=== PATIENT | female | born 1930 | race Caucasian/White ===

== ENCOUNTER 2017-10-07 09:32 | Emergency (ER) | payer MEDICARE, OTHER ==
[~2017-10-07] VITALS: Ht 160 cm; Wt 45.4 kg
[~2017-10-07 09:32] MED LIST: AC325T PO; ACHD5005 PO; ALPH1TAB8 PO; ASCO500T20 PO; ASPI-84 PO; Amlodipine Besylate PO; Aspirin PO; CALC-694 PO; CALC-783 PO; CALC-9; CALCIUM PO; CHOL10003 PO; CLNZ.5T PO; CLON0.5T3; CLON0.5T3 PO; CLON0.5T60 PO; DOCU100T7; DOXY100C2 PO; ENAL10TA PO; ENAL5TAB PO; ENLP10T PO; ENXP40I.4 SC; FELODIPINE; FNT.05A2 IV; GFN600TCR PO; GLUC-132 PO; GLUC-144 PO; HYDR-757 PO; IBP800T PO; LEG CRAMPS PO; LVT.05T PO; MAGN250T7 PO; METO50TA7 PO; MTP25TSR PO; MULT-608; MULT1CAP27 PO; NITR-65 PO; OMEG-12 PO; Ondansetron Hcl PO; PHEN200T27 PO; PROP15DR OU; Polyethylene Glycol PO; RLX60T; RLX60T PO; SIMV20TA3 PO; SMV20T; SMV20T PO; SOTA120T PO; Sotalol Hcl PO; TRIH5TAB7 PO; TRIHEXYPHENIDYL HCL PO; VITA100T6 PO; VITA200C18; ZOLE4INF IV
--- OUTSIDE RECORDS SUMMARY | 2017-10-07 09:42 | XMS REPORT | Continuity of Care Document ---
Author Author [employer] Organization [facility] Address Unknown Phone Unavailable Care Team Providers Care Teaching Fellow Name Role Phone [employer] Unavailable Unavailable Problems Medications Allergies, Adverse Reactions, Alerts Immunizations Results Vital Signs Encounters Location Location Details Encounter Type Encounter Number Reason For Visit Attending Provider ADM Date DC Date Status Source [facility] [place] Active [facility] Procedures Plan of Care Social History Assessment and Plan Family History Value Date Source Advance Directives Order Name Results Value Date Source
--- OUTSIDE RECORDS SUMMARY | 2017-10-07 09:42 | XMS REPORT | Clinical Summary ---
Author Author [facility] Organization [facility] Address Unknown Phone Unavailable Care Team Providers Care Enologist Name Role Phone PCP Unavailable Source Comments Some departments are not documenting in the electronic medical record. If you do not see the information that you expected, contact Release of Information in the Health Information Management department at [phone] for further assistance in locating additional records.[facility] Allergies No Known Allergies Current Medications Prescription Sig. Disp. Refills Start End Date Status Date sotalol (BETAPACE) 120 mg Take 120 mg by mouth Active Tab twice daily. simvastatin (ZOCOR) 20 mg Take 20 mg by mouth at Active tablet bedtime daily. enalapril (VASOTEC) 10 mg Take 10 mg by mouth Active tablet daily. clonazePAM (KLONOPIN) 0.5 Take 1 Tab by mouth 90 Tab 1 07/30/20 Active mg tabletIndications: daily. 15 Organic writers' cramp trihexyphenidyl (ARTANE) Take 1 tablet by mouth 90 tablet 0 09/24/20 Active 5 mg tabletIndications: daily. 17 Organic writers' cramp trihexyphenidyl (ARTANE) Take 1 Tab by mouth 90 Tab 3 07/30/2009/24 Discontin 5 mg tabletIndications: daily. 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 Currently I follow three generations of her family. This has been present for thirty or more years. Her symptoms are well controlled with the combination of trihexyphenidyl and clonazepam. L ast Assessment & Plan: Formatting of this note may be different from the original. I have given her refill prescriptions, she will call in six months for a refill of the clonazepam and return to see me again in a year. Encounter Medications Medications enalapril (VASOTEC) 10 mg tablet Sig: Take 10 mg by mouth daily. clonazePAM (KLONOPIN) 0.5 mg tablet Sig: Take 1 Tab by mouth daily. Dispense: 90 Tab Refill: 1 trihexyphenidyl (ARTANE) 5 mg tablet Sig: Take 1 Tab by mouth daily. Dispense: 90 Tab Refill: 3 Patient Instructions In about five and a half months call us for a new prescription for clonazepam, You can always reach me through the page planishing press operator and ask them to page me Organic writers' cramp 12/29/2012 Overview: Please see under blepharospasm Encounters Date Type Specialty Care Team Description 09/24/2017 Refill Neurology Raul Santos MD Organic writers' cramp 09/23/2017 Telephone Neurology Raul Santos MD Medication Refill (Denied) from Last 3 Months Social History Tobacco Use Types Packs/Day Years Used Date Never Smoker Sex Assigned at Date Recorded Not on file Last Filed Vital Signs Vital Sign Reading Time Taken Blood Pressure 160/82 07/30/2015 10:21 AM CDT Pulse 60 07/30/2015 10:21 AM CDT Temperature - - Respiratory Rate - - Oxygen Saturation - - Inhaled Oxygen - - Concentration Weight 46.7 kg (103 lb) 07/30/2015 10:21 AM CDT Height 152.4 cm (5') 07/30/2015 10:21 AM CDT Body Mass Index 20.12 07/30/2015 10:21 AM CDT Plan of Treatment Health Maintenance Due Date Last Done Comments PHYSICAL (COMPREHENSIVE) 1937 EXAM PERTUSSIS VACCINE 1942 TETANUS VACCINE 1948 SHINGLES VACCINE 1991 OSTEOPOROSIS SCREENING 1996 PREVNAR/PNEUMOVAX (#1) 1996 INFLUENZA VACCINE 06/22/2017 Results Not on filefrom Last 3 Months
--- OUTSIDE RECORDS SUMMARY | 2017-10-07 09:42 | XMS REPORT | Encounter Summary ---
Author Author [facility] Organization [facility] Address Unknown Phone Unavailable Care Team Providers Care Campus Coordinator Name Role Phone PCP Unavailable Reason for Visit * Reason Comments Medication Refill Denied Encounter Details Date Type Department Care Team Description 09/23/2017 Telephone [facility] Raul Santos MD Medication Refill Physicians-Neurology [address] [facility] (Denied) [facility] [address] [place] [address] [place], [place] [phone] Social History Tobacco Use Types Packs/Day Years Used Date Never Smoker Sex Assigned at Date Recorded Not on file as of this encounter Miscellaneous Notes * Telephone Encounter - Karla Mcmullen LPN - 09/23/2017 11:30 AM CDT Requesting a refill . Last visit was 07-30-2015 Refill denied . Faxed to pharm. in this encounter Plan of Treatment Not on fileas of this encounter Visit Diagnoses Not on filein this encounter
--- OUTSIDE RECORDS SUMMARY | 2017-10-07 09:42 | XMS REPORT | Encounter Summary ---
Author Author [facility] Organization [facility] Address Unknown Phone Unavailable Care Team Providers Care Supervisor Abattoir Name Role Phone PCP Unavailable Reason for Visit * Reason Comments Medication Refill Encounter Details Date Type Department Care Team Description 09/24/2017 Refill [facility] Raul Santos MD Organic writers' cramp Physicians-Neurology [address] [facility] [address] [place] [address] [place], [place] [phone] Social History Tobacco Use Types Packs/Day Years Used Date Never Smoker Sex Assigned at Date Recorded Not on file as of this encounter Plan of Treatment Not on fileas of this encounter Visit Diagnoses Diagnosis Organic writers' cramp in this encounter
--- OUTSIDE RECORDS SUMMARY | 2017-10-07 09:45 | XMS REPORT | Continuity of Care Document ---
Author Author [facility] Organization [facility] Address Unknown Phone Unavailable Allergies Active Description Code Type Severity Reaction Onset Reported/Identified Relationship to Patient Clinical Status Yes codeine [id number] Drug Allergy Mild N/A 08/08/2008 Yes No Known Drug Allergies [id number] Drug Allergy Unknown N/ A 04/05/2015 Medications Problems Date Dx Coded Attending Type Code Diagnosis Diagnosed By 04/02/2015 MIGUELANGEL RAHMAN Ot 599.0 04/02/2015 MIGUELANGEL RAHMAN Ot 733.13 04/02/2015 MIGUELANGEL RAHMAN Ot 789.06 04/02/2015 MIGUELANGEL RAHMAN Ot V58.69 04/05/2015 Ot 733.00 04/05/2015 Ot V58.69 04/05/2015 Ot 733.00 04/05/2015 Ot V58.69 04/07/2015 MARTHA MONCADA, RONEL Anderson Ot 041.49 04/07/2015 MARTHA MONCADA, RONEL Anderson Ot 244.9 04/07/2015 MARTHA MONCADA, RONEL Anderson Ot 272.4 04/07/2015 MARTHA MONCADA, RONEL Anderson Ot 401.9 04/07/2015 MARTHA MONCADA, RONEL Anderson Ot 427.31 04/07/2015 MARTHA MONCADA, RONEL Anderson Ot 433.10 04/07/2015 MARTHA MONCADA, RONEL Anderson Ot 496 04/07/2015 RONEL THOMAS MD Ot 530.81 04/07/2015 MARTHA MONCADA, RONEL Anderson Ot 562.10 04/07/2015 MARTHA MONCADA, RONEL Anderson Ot 599.0 04/07/2015 RONEL THOMAS MD Ot 724.8 04/07/2015 MARTHA MONCADA, RONEL Anderson Ot 733.00 04/07/2015 RONEL THOMAS MD Ot 781.0 04/07/2015 RONEL THOMAS MD Ot V15.82 04/12/2015 RAFITA MONCADA, RUSH Warner Ot 244.9 04/12/2015 RUSH ELLER MD Ot 272.4 04/12/2015 RAFITA MONCADA, RUSH E Ot 401.9 04/12/2015 RAFITA MONCADA, RUSH E Ot 427.31 04/12/2015 RAFITA MONCADA, RUSH E Ot 433.10 04/12/2015 RAFITA MONCADA, RUSH E Ot 496 04/12/2015 RAFITA MONCADA, RUSH E Ot 530.81 04/12/2015 RAFITA MONCADA, RUSH E Ot 562.10 04/12/2015 RAFITA MONCADA, RUSH E Ot 564.00 04/12/2015 RAFITA MONCADA, RUSH E Ot 599.0 04/12/2015 RAFITA MONCADA, RUSH E Ot 724.5 04/12/2015 RAFITA MONCADA, RUSH E Ot 729.82 04/12/2015 RAFITA MONCADA, RUSH E Ot 733.00 04/12/2015 RAFITA MONCADA, RUSH E Ot V13.51 04/12/2015 RAFITA MONCADA, RUSH E Ot V57.89 04/12/2015 RAFITA MONCADA, RUSH E Ot 244.9 04/12/2015 RAFITA MONCADA, RUSH E Ot 272.4 04/12/2015 RAFITA MONCADA, RUSH E Ot 401.9 04/12/2015 RAFITA MONCADA, RUSH E Ot 427.31 04/12/2015 RAFITA MONCADA, RUSH E Ot 433.10 04/12/2015 RAFITA MONCADA, RUSH E Ot 496 04/12/2015 RAFITA MONCADA, RUSH E Ot 530.81 04/12/2015 RAFITA MONCADA, RUSH E Ot 562.10 04/12/2015 RAFITA MONCADA, RUSH E Ot 564.00 04/12/2015 RAFITA MONCADA, RUSH E Ot 599.0 04/12/2015 RAFITA MONCADA, RUSH E Ot 724.5 04/12/2015 RAFITA MONCADA, RUSH E Ot 729.82 04/12/2015 RAFITA MONCADA, RUSH E Ot 733.00 04/12/2015 RAFITA MONCADA, RUSH E Ot V13.51 04/12/2015 RAFITA MONCADA, RUSH E Ot V57.89 04/16/2015 RAFITA MONCADA, RUSH E Ot 244.9 04/16/2015 RAFITA MONCADA, RUSH E Ot 272.4 04/16/2015 RAFITA MONCADA, RUSH E Ot 401.9 04/16/2015 RAFITA MONCADA, RUSH E Ot 427.31 04/16/2015 RUSH ELLER MD Ot 433.10 04/16/2015 RAFITA MONCADA, RUSH Warner Ot 496 04/16/2015 RUSH ELLER MD Ot 530.81 04/16/2015 RUSH ELLER MD Ot 562.10 04/16/2015 RUSH ELLER MD E Ot 564.00 04/16/2015 RUSH ELLER MD Ot 599.0 04/16/2015 RUSH ELLER MD Ot 724.5 04/16/2015 RUSH ELLER MD Ot 729.82 04/16/2015 RUSH ELLER MD Ot 733.00 04/16/2015 RUSH ELLER MD Ot V13.51 04/16/2015 RUSH ELLER MD Ot V57.89 01/17/2016 ESTEFANÍA EATON MD Ot E78.2 01/17/2016 ESTEFANÍA EATON MD Ot I10 01/17/2016 ESTEFANÍA EATON MD Ot I48.3 01/17/2016 ESTEFANÍA EATON MD Ot I65.23 01/17/2016 ESTEFANÍA EATON MD Ot R06.02 Procedures Results Encounters ACCT No. Visit Date/Time Discharge Status Pt. Type Provider Facility Loc./Unit Complaint [id number] 12/23/2015 14:12:00 2015 23:59:59 CLS Outpatient ESTEFANÍA EATON MD [facility] CARD [id number] 04/07/2015 15:00:00 2014 14:30:00 DIS Inpatient RUSH ELLER MD [facility] IRF [id number] 04/03/2015 20:19:00 2014 15:45:00 DIS Inpatient RONEL THOMAS MD [facility] SURGICAL [id number] 04/02/2015 10:05:00 2014 14:51:00 DIS Emergency MIGUELANGEL RAHMAN [facility] ER [id number] 06/23/2014 10:42:00 2013 12:00:00 DIS Emergency [id number] 07/26/2013 09:02:00 2012 23:59:59 CLS Outpatient [id number] 02/10/2012 00:00:00 Document Registration
[2017-10-07] MEDS ORDERED: ADENOSINE 6 MG/2 ML (ADENOCARD) VIAL IV ONE (09:53)
[2017-10-07] MEDS: ASPIRIN 81 MG CHEW (CHILDREN'S ASA) PO ONE (09:58)
[2017-10-07] MEDS: NS IV 500 ML 500 ML IV ONE (09:59)
[2017-10-07 10:06] LABS: BASOPHILS # (AUTO) 0.1 10^3/uL (0.0-0.1); BASOPHILS % (AUTO) 1 % (0-10); EOSINOPHILS # (AUTO) 0.2 10^3/uL (0.0-0.3); EOSINOPHILS % (AUTO) 3 % (0-10); LYMPHOCYTES # (AUTO) 1.9 X 10^3 (1.0-4.0); LYMPHOCYTES % (AUTO) 28 % (12-44); MEAN CORPUSCULAR HEMOGLOBIN 30 PG (25-34); MEAN CORPUSCULAR HGB CONC 34 G/DL (32-36); MEAN CORPUSCULAR VOLUME 90 FL (80-99); MEAN PLATELET VOLUME 11.2 FL (7.4-10.4); MONOCYTES # (AUTO) 0.6 X 10^3 (0.0-1.0); MONOCYTES % (AUTO) 9 % (0-12); NEUTROPHILS # (AUTO) 3.9 X 10^3 (1.8-7.8); NEUTROPHILS % (AUTO) 59 % (42-75); PLATELET COUNT 304 10^3/uL (130-400); RED BLOOD COUNT 4.62 10^6/uL (4.35-5.85); RED CELL DISTRIBUTION WIDTH 13.1 % (10.0-14.5); WHITE BLOOD COUNT 6.7 10^3/uL (4.3-11.0)
[2017-10-07 10:14] LABS: PROTHROMBIN TIME PATIENT 13.6 SEC (12.2-14.7)
--- NOTE | 2017-10-07 10:14 | ED Cardiac General ---
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 PT HAS HX OF SVT WITH ABLATION. PT DENIES CHEST PAIN. Source: patient Exam Limitations: no limitations History of Present Illness Time seen by provider: 09:35 Initial Comments Patient reportedly had palpitations and feeling weird today approximately 30 minutes prior to arrival. Patient noted to have elevated heart rate low blood pressure. Brought over here for further evaluation area patient denies chest pain but does report palpitations. Reports a little short of breath but no nausea or vomiting. No diaphoresis. Has history of a heart rate in atrial fibrillation or SVT with previous history of ablation. Follows up with Dr. Dahl. Timing/Duration: 1/2 hour Severity: moderate Location: central Activities at Onset: rest NTG SL INTEGRATION PROJECT MANAGER: No ASA po INTEGRATION PROJECT MANAGER: No Associated Systoms: No Chest Pain, No Cough, No Fever/Chills, No Nausea/ Vomiting, Shortness of Air, No Weakness Allergies and Home Medications Allergies Coded Allergies: No Known Drug Allergies (Unverified , 04/05/15) Home Medications Aspirin 81 Mg Tablet., 81 MG PO BID, (Reported) Calcium Carbonate/Vitamin D3 1 Each Tablet, 1 TAB PO BID, (Reported) Clonazepam 0.5 Mg Tablet, 0.5 MG PO DAILY, (Reported) Clonazepam 0.5 Mg Tab, 0.5 MG PO DAILY, #0 Prescribed by: BARTOLOME VÁSQUEZ on 04/07/15 1628 Enalapril Maleate 10 Mg Tablet, 10 MG PO BID, (Reported) Enalapril Maleate 10 Mg Tab, 20 MG PO BID for 30 Days Prescribed by: REBECA SANCHEZ on 04/16/15 1346 Glucosamine Hcl/Chondr Ortez A Na 1 Each Tablet, 1 TAB PO DAILY, (Reported) Hydrocodone Bit/Acetaminophen 1 Tab Tab, 1 TAB PO Q4H PRN for PAIN, #0 Prescribed by: BARTOLOME VÁSQUEZ on 04/07/15 1628 Levothyroxine Sodium 50 Mcg Tab, 50 MCG PO DAILY@0630, #0 Prescribed by: BARTOLOME VÁSQUEZ on 04/07/15 1628 Magnesium Oxide 250 Mg Tablet, 250 MG PO HS, (Reported) Lincoln-3/Dha/Epa/Fish Oil 1 Each Capsule.dr, 1,000 MG PO BID, (Reported) Propylene Glycol/Peg 400 5 Ml Drops, 1-2 DROP OU QID PRN for DRY EYES, (Reported ) Simvastatin 20 Mg Tablet, 20 MG PO HS, (Reported) Sotalol Hcl 120 Mg Tablet, 120 MG PO BID, (Reported) Trihexyphenidyl Hcl 5 Mg Tablet, 5 MG PO DAILY, (Reported) [Amlodipine Besylate] 10 MG TABLET, 10 MG PO DAILY Prescribed by: REBECA SANCHEZ on 04/16/15 1346 [Ondansetron Hcl] 4 MG TAB, 4 MG PO Q4H PRN for NAUSEA/VOMITING Prescribed by: REBECA SANCHEZ on 04/16/15 1346 [Polyethylene Glycol] 17 GM PACK, 17 GM PO HS Prescribed by: BARTOLOME VÁSQUEZ on 04/07/15 162 [Sotalol Hcl] 80 MG TAB, 120 MG PO BID Prescribed by: BARTOLOME VÁSQUEZ on 04/07/151627 [Trihexyphenidyl Hcl] 5 MG TABLET, 5 MG PO DAILY Prescribed by: BARTOLOME VÁSQUEZ on 04/07/151627 Review of Systems Constitutional: see HPI, No fever EENTM: No Symptoms Reported Respiratory: See HPI Cardiovascular: See HPI, Lightheadedness Gastrointestinal: No Symptoms Reported Genitourinary: No Symptoms Reported Musculoskeletal: no symptoms reported Skin: no symptoms reported Psychiatric/Neurological: No Symptoms Reported All Other Systems Reviewed Negative Unless Noted: Yes Past Ifmkuqu-Rmqxgq-Irmtmv Hx Patient Social History Alcohol Use: Denies Use Recreational Drug Use: No Smoking Status: Former Smoker 2nd Hand Smoke Exposure: No Recent Foreign Travel: No Contact w/Someone Who Travel: No Recent Infectious Disease Expo: No Recent Hopitalizations: No Physical Abuse: No Sexual Abuse: No Immunizations Up To Date Tetanus Booster (TDap): Unknown Date of Pneumonia Vaccine: April 04, 2011 Date of Influenza Vaccine: Sep 22, 2017 Seasonal Allergies Seasonal Allergies: No Surgeries History of Surgeries: Yes (dental, HIATAL HERNIA, ) Surgeries: Abdominal, Bladder Surgery, Gallbladder Respiratory History of Respiratory Disorde: Yes Respiratory Disorders: COPD Cardiovascular History of Cardiac Disorders: No (SVT) Cardiac Disorders: Hypertension Neurological History of Neurological Disord: Yes (DYSTONIA) Reproductive System Hx Reproductive Disorders: No Sexually Transmitted Disease: No HIV/AIDS: No Female Reproductive Disorders: Denies Gastrointestinal History of Gastrointestinal Di: Yes (HIATAL HERNIA;REPAIRED) Gastrointestinal Disorders: Gastroesophageal Reflux, Diverticulosis Musculoskeletal History of Musculoskeletal Dis: Yes (L1,L4 COMPRESSION FRACTURES) Musculoskeletal Disorders: Osteoporosis, Chronic Back Pain Endocrine History of Endocrine Disorders: Yes Endocrine Disorders: Hypothyroidsim HEENT Loss of Vision: Denies Hearing Impairment: Denies Cancer History of Cancer: No Psychosocial History of Psychiatric Problem: No Suicide Risk Score: 0 Integumentary History of Skin or Integumenta: No Blood Transfusions History of Blood Disorders: No Adverse Reaction to a Blood Tr: No Reviewed Nursing Assessment Reviewed/Agree w Nursing PMH: Yes Family Medical History Significant Family History: No Pertinent Family Hx Family Medial History: CIRR 19 FATHER CIRR 19 FATHER Cardiovascular disease 19 MOTHER DYSTONIA G8 BROTHER FH: cirrhosis 19 FATHER Hypertension 19 MOTHER Physical Exam Vital Signs Vital Sign - Last 12Hours 10/07/17 09:32 Temp 98.3 Pulse 138 Resp 13 B/P (MAP) 110/87 Pulse Ox 95 O2 Delivery Room Air Capillary Refill : Less Than 3 Seconds General Appearance: No Apparent Distress, WD/WN HEENT: PERRL/EOMI, Pharynx Normal Neck: Non Tender, Supple Respiratory: Lungs Clear, Normal Breath Sounds Cardiovascular: No Murmur, Tachycardia Gastrointestinal: Normal Bowel Sounds, Soft Extremity: Normal Range of Motion, Non Tender Neurologic/Psychiatric: Alert, Oriented x3 Skin: Normal Color, Warm/Dry Progress/Results/Core Measures Results/Orders Lab Results Laboratory Tests Test 10/07/17 09:45 Range/Units White Blood Count 6.7 4.3-11.0 10^3/uL Red Blood Count 4.62 4.35-5.85 10^6/uL Hemoglobin 14.0 11.5-16.0 G/DL Hematocrit 42 35-52 % Mean Corpuscular Volume 90 80-99 FL Mean Corpuscular Hemoglobin 30 25-34 PG Mean Corpuscular Hemoglobin Concent 34 32-36 G/DL Red Cell Distribution Width 13.1 10.0-14.5 % Platelet Count 304 130-400 10^3/uL Mean Platelet Volume 11.2 H 7.4-10.4 FL Neutrophils (%) (Auto) 59 42-75 % Lymphocytes (%) (Auto) 28 12-44 % Monocytes (%) (Auto) 9 0-12 % Eosinophils (%) (Auto) 3 0-10 % Basophils (%) (Auto) 1 0-10 % Neutrophils # (Auto) 3.9 1.8-7.8 X 10^3 Lymphocytes # (Auto) 1.9 1.0-4.0 X 10^3 Monocytes # (Auto) 0.6 0.0-1.0 X 10^3 Eosinophils # (Auto) 0.2 0.0-0.3 10^3/uL Basophils # (Auto) 0.1 0.0-0.1 10^3/uL Prothrombin Time 13.6 12.2-14.7 SEC INR Comment 1.0 0.8-1.4 Activated Partial Thromboplast Time 34 24-35 SEC Sodium Level 137 135-145 MMOL/L Potassium Level 4.1 3.6-5.0 MMOL/L Chloride Level 102 98-107 MMOL/L Carbon Dioxide Level 25 21-32 MMOL/L Anion Gap 10 5-14 MMOL/L Blood Urea Nitrogen 24 H 7-18 MG/DL Creatinine 0.80 0.60-1.30 MG/DL Estimat Glomerular Filtration Rate > 60 BUN/Creatinine Ratio 30 Glucose Level 99 70-105 MG/DL Calcium Level 9.4 8.5-10.1 MG/DL Magnesium Level 1.6 L 1.8-2.4 MG/DL Total Bilirubin 0.5 0.1-1.0 MG/DL Aspartate Amino Transf (AST/SGOT) 22 5-34 U/L Alanine Aminotransferase (ALT/SGPT) 16 0-55 U/L Alkaline Phosphatase 80 40-136 U/L Myoglobin 60.8 10.0-92.0 NG/ML Troponin I < 0.30 <0.30 NG/ML Total Protein 7.2 6.4-8.2 GM/DL Albumin 3.7 3.2-4.5 GM/DL My Orders Orders - JACKLYN KIM MD Cbc With Automated Diff (10/07/17 09:44) Magnesium (10/07/17 09:44) Chest 1 View, Ap/Pa Only (10/07/17 09:44) Ekg Tracing (10/07/17 09:44) Cardiac Profile 1 (10/07/17 09:44) Comprehensive Metabolic Panel (10/07/17 09:44) Myoglobin Serum (11/16/17 09:44) Protime With Inr (10/07/17 09:44) Partial Thromboplastin Time (10/07/17 09:44) O2 (10/07/17 09:44) Monitor-Rhythm Ecg Trace Only (10/07/17 09:44) Lipid Panel (10/08/17 06:00) Aspirin Chewable Tablet (Baby Aspirin Ch (10/07/17 09:45) Saline Lock/Iv-Start (10/07/17 09:44) Ns Iv 500 Ml (Sodium Chloride 0.9%) (10/07/17 09:52) Adenosine Injection (Adenocard Injection (10/07/17 10:00) Adenosine Injection (Adenocard Injection (10/07/17 09:53) Ekg Tracing (10/07/17 10:46) Medications Given in ED Current Medications Medications Dose Ordered Sig/Reena Route Start Time Stop Time Status Last Admin Dose Admin Adenosine 6 mg ONCE ONCE IV 10/07/17 10:00 10/07/17 10:02 DC 10/07/17 10:15 6 MG Aspirin 324 mg ONCE ONCE PO 10/07/17 09:45 10/07/17 09:53 DC 10/07/17 09:58 324 MG Sodium Chloride 500 ml @ 0 mls/hr Q0M ONCE IV 10/07/17 09:52 10/07/17 09:53 DC 10/07/17 09:59 0 MLS/HR Vital Signs/I&O Vital Sign - Last 12Hours 10/07/17 09:32 Temp 98.3 Pulse 138 Resp 13 B/P (MAP) 110/87 Pulse Ox 95 O2 Delivery Room Air Blood Pressure Mean: 95 Progress Note : Progress Note Seen and evaluated. IV, labs, EKG and chest x-ray ordered. Normal saline 500 mL bolus. Dilaudid 6 mg IV ordered. This was given. There was a change in rate and rhythm and patient and sinus rhythm afterwards. Monitor patient. 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 Since patient has converted and she has underlying paroxysmal atrial fibrillation, patient is considered okay to go home. This was discussed with patient and family who agree. Discharged home with return precautions. Patient verbalize understanding instructions and agreement with plan. ECG Initial ECG Impression Date: Oct 07, 2017 Initial ECG Impression Time: 09:35 Initial ECG Rate: 138 Comment Tachycardia that was sustained rate of 138 which may be junctional or underlying atrial flutter. No evidence of ST elevation [place]. Change from 10 Apr 2015. Interpreted by me. EKG : EKG Time: 10:31 Rate: 70 Rhythm: Normal Sinus Comment Sinus rhythm with normal axis. No evidence of ST elevation [place]. Consideration of left ventricular hypertrophy. Change from previous and no longer and tachycardia. Interpreted by me. Diagnostic Imaging Diagonstic Imaging: Xray Plain Films/CT/US/NM/MRI: chest Comments NAME: JEREMY BALLARD MED REC#: [id number] PT STATUS: REG ER : 1930 PHYSICIAN: JACKLYN KIM MD ADMIT DATE: 10/07/17/ER Signed Date of Exam: 10/07/17 CHEST 1 VIEW, AP/PA ONLY INDICATION: Palpitations Frontal chest obtained at 10 o'clock hours am, and compared to 07/06/2012. The heart is enlarged. There is minimal central vascular prominence. There are mild chronic appearing increased interstitial markings. There is hyperinflation compatible with COPD. There is no new consolidation or pleural fluid. There is advanced degenerative change of both shoulders. IMPRESSION: Cardiomegaly and mild central vascular prominence. Chronic appearing increased interstitial markings. Hyperinflation compatible with COPD. No focal infiltrate or pleural fluid. Dictated by: Dictated on workstation # [id number] Dict: 10/07/17 1009 Trans: 10/07/17 1054 Interpreted by: CECILIA WHITT MD Electronically signed by: CECILIA WHITT MD 10/07/17 1054 Departure Impression Impression: Primary Impression: Paroxysmal atrial fibrillation Disposition: 01 HOME, SELF-CARE Condition: Improved Departure-Patient Inst. Decision time for Depature: 11:09 Referrals: ESTEFANÍA DAHL MD, JOHN D MD (PCP/Family) Primary Care Physician Patient Instructions: Paroxysmal Supraventricular Tachycardia (DC) Add. Discharge Instructions: All discharge instructions reviewed with patient and/or family. Voiced understanding. Follow-up with Dr. Dahl next week for recheck and further evaluation. Continue home medications as directed and previously prescribed. Drinking adequate amount of fluids and eat a regular diet. Return for worsening, fever, vomiting, weakness, breathing problems or other concerns as needed. Copy Copies To 1: ESTEFANÍA DAHL MD, TIMOTHY D MD Oct 07, 2017 10:13
[2017-10-07] MEDS: ADENOSINE 6 MG/2 ML (ADENOCARD) VIAL IV ONE (10:15)
--- NOTE | 2017-10-07 10:18 | Diagnostic Imaging Report ---
INDICATION: Palpitations Frontal chest obtained at 10 o'clock hours am, and compared to 07/06/2012. The heart is enlarged. There is minimal central vascular prominence. There are mild chronic appearing increased interstitial markings. There is hyperinflation compatible with COPD. There is no new consolidation or pleural fluid. There is advanced degenerative change of both shoulders. IMPRESSION: Cardiomegaly and mild central vascular prominence. Chronic appearing increased interstitial markings. Hyperinflation compatible with COPD. No focal infiltrate or pleural fluid. Dictated by: Dictated on workstation # [id number]
[2017-10-07 10:19] LABS: ALANINE AMINOTRANSFERASE 16 U/L (0-55); ALBUMIN 3.7 GM/DL (3.2-4.5); ANION GAP 10 MMOL/L (5-14); ASPARTATE AMINO TRANSFERASE 22 U/L (5-34); BILIRUBIN,TOTAL 0.5 MG/DL (0.1-1.0); BLOOD UREA NITROGEN 24 MG/DL (7-18); BUN/CREATININE RATIO 30; CALCIUM 9.4 MG/DL (8.5-10.1); CARBON DIOXIDE 25 MMOL/L (21-32); CHLORIDE 102 MMOL/L (98-107); GFR ESTIMATED > 60; GLUCOSE 99 MG/DL (70-105); MAGNESIUM 1.6 MG/DL (1.8-2.4); POTASSIUM 4.1 MMOL/L (3.6-5.0); SODIUM 137 MMOL/L (135-145); TOTAL PROTEIN 7.2 GM/DL (6.4-8.2)
[2017-10-07 10:26] LABS: MYOGLOBIN SERUM 60.8 NG/ML (10.0-92.0)
[2017-10-07 11:20] VITALS: BP 126/88
== END 2017-10-07 11:20 | disposition home or self-care (01) ==
LOC: EDUNIT# 09:32 → ER 09:33
DX: I48.0 Paroxysmal atrial fibrillation (principal); J44.9 Chronic obstructive pulmonary disease, unspecified; I10 Essential (primary) hypertension; K21.9 Gastro-esophageal reflux disease without esophagitis; M81.0 Age-related osteoporosis without current pathological fracture; E03.9 Hypothyroidism, unspecified; Z82.49 Family history of ischemic heart disease and other diseases of the circulatory system; Z79.82 Long term (current) use of aspirin; Z87.891 Personal history of nicotine dependence; Z87.19 Personal history of other diseases of the digestive system
CPT/HCPCS: 36415; 71010; 80053; 83735; 83874; 84484; 85025; 85610; 85730; 93041

== ENCOUNTER 2017-11-26 13:02 | Emergency (ER) | payer MEDICARE, OTHER ==
[~2017-11-26] VITALS: Ht 152.4 cm; Wt 47.6 kg
--- NOTE | 2017-11-26 13:44 | ED Fall/Injury ---
General Chief Complaint: Trauma-Non Activation Stated Complaint: FALL, HEAD INJ Nursing Triage Note: ARRIVED VIA AMB USING A CANE TO ROOM 06. STATES SHE TRIPPED ON UNEVEN GROUND AT THE [place] PARKING [place] CAUSING HER TO FALL FACE FORWARD HITTING HER HEAD. DENIES LOC. DENIES HEAD/NECK PAIN. Source: patient Exam Limitations: no limitations (JACKLYN KIM MD) History of Present Illness Time seen by provider: 13:30 Initial Comments Here with report of falling on uneven ground in a parking lot. She did land on her face on the left side and broke her glasses. She has 2 cm laceration to the left lateral brow as well as a small wound on the forehead. Denies other injury. Was able to walk afterwards and denies any pelvic pain. Denies loss of consciousness. Only on aspirin for blood thinning and nothing more significant. Denies neck or back pain. Occurred: just prior to arrival (30 minutes ago) Severity: mild Injuries/Pain Location: head, face Context: tripped Loss of Consciousness: no loss of consciousness Associated Symptoms (Fall): No Abdominal Pain, No Chest Pain, No Confusion, Headache, No Nausea/Vomiting, No Neck Pain, No Shortness of Air (JACKLYN KIM MD) Allergies and Home Medications Allergies Coded Allergies: No Known Drug Allergies (Unverified , 04/05/15) Home Medications Aspirin 81 Mg Tablet.dr, 81 MG PO BID, (Reported) Calcium Carbonate/Vitamin D3 1 Each Tablet, 1 TAB PO BID, (Reported) Clonazepam 0.5 Mg Tablet, 0.5 MG PO DAILY, (Reported) Clonazepam 0.5 Mg Tab, 0.5 MG PO DAILY, #0 Prescribed by: BARTOLOME VÁSQUEZ on 04/07/15 1628 Enalapril Maleate 10 Mg Tablet, 10 MG PO BID, (Reported) Enalapril Maleate 10 Mg Tab, 20 MG PO BID for 30 Days Prescribed by: REBECA SANCHEZ on 04/16/15 1346 Glucosamine Hcl/Chondr Ortez A Na 1 Each Tablet, 1 TAB PO DAILY, (Reported) Hydrocodone Bit/Acetaminophen 1 Tab Tab, 1 TAB PO Q4H PRN for PAIN, #0 Prescribed by: BARTOLOME VÁSQUEZ on 04/07/15 1628 Levothyroxine Sodium 50 Mcg Tab, 50 MCG PO DAILY@0630, #0 Prescribed by: BARTOLOME VÁSQUEZ on 04/07/151627 Magnesium Oxide 250 Mg Tablet, 250 MG PO HS, (Reported) [place]-3/Dha/Epa/Fish Oil 1 Each Capsule.dr, 1,000 MG PO BID, (Reported) Propylene Glycol/Peg 400 5 Ml Drops, 1-2 DROP OU QID PRN for DRY EYES, (Reported ) Simvastatin 20 Mg Tablet, 20 MG PO HS, (Reported) Sotalol Hcl 120 Mg Tablet, 120 MG PO BID, (Reported) Trihexyphenidyl Hcl 5 Mg Tablet, 5 MG PO DAILY, (Reported) [Amlodipine Besylate] 10 MG TABLET, 10 MG PO DAILY Prescribed by: REBECA SANCHEZ on 04/16/15 1346 [Ondansetron Hcl] 4 MG TAB, 4 MG PO Q4H PRN for NAUSEA/VOMITING Prescribed by: REBECA SANCHEZ on 04/16/15 1346 [Polyethylene Glycol] 17 GM PACK, 17 GM PO HS Prescribed by: BARTOLOME VÁSQUEZ on 04/07/151627 [Sotalol Hcl] 80 MG TAB, 120 MG PO BID Prescribed by: BARTOLOME VÁSQUEZ on 04/07/151627 [Trihexyphenidyl Hcl] 5 MG TABLET, 5 MG PO DAILY Prescribed by: BARTOLOME VÁSQUEZ on 04/07/151627 Constitutional: see HPI, No chills, No fever Eyes: No Symptoms Reported Ears, Nose, Mouth, Throat: no symptoms reported Respiratory: No short of breath, No wheezing Cardiovascular: No chest pain, No edema Gastrointestinal: no symptoms reported Musculoskeletal: no symptoms reported Skin: see HPI, change in color, lesions Psychiatric/Neurological: No Symptoms Reported (JACKLYN KIM MD) Past Wldoaol-Kkpufy-Pevmpy Hx Patient Social History Alcohol Use: Occasionally Uses Recreational Drug Use: No Smoking Status: Never a Smoker 2nd Hand Smoke Exposure: No Recent Foreign Travel: No Contact w/Someone Who Travel: No Recent Infectious Disease Expo: No Recent Hopitalizations: No (JACKLYN KIM MD) Immunizations Up To Date Tetanus Booster (TDap): Less than 5yrs Date of Pneumonia Vaccine: April 04, 2011 Date of Influenza Vaccine: Sep 22, 2017 (JACKLYN KIM MD) Seasonal Allergies Seasonal Allergies: No (JACKLYN KIM MD) Surgeries History of Surgeries: Yes (dental, HIATAL HERNIA, ) Surgeries: Abdominal, Bladder Surgery, Gallbladder (JACKLYN KIM MD) Respiratory History of Respiratory Disorde: Yes Respiratory Disorders: COPD (JACKLYN KIM MD) Cardiovascular History of Cardiac Disorders: No (SVT) Cardiac Disorders: Atrial Fibrillation, Hypertension (JACKLYN KIM MD) Neurological History of Neurological Disord: Yes (DYSTONIA) (JACKLYN KIM MD) Reproductive System Hx Reproductive Disorders: No Sexually Transmitted Disease: No HIV/AIDS: No Female Reproductive Disorders: Denies (JACKLYN KIM MD) Gastrointestinal History of Gastrointestinal Di: Yes (HIATAL HERNIA;REPAIRED) Gastrointestinal Disorders: Gastroesophageal Reflux, Diverticulosis (JACKLYN KIM MD) Musculoskeletal History of Musculoskeletal Dis: Yes (L1,L4 COMPRESSION FRACTURES) Musculoskeletal Disorders: Osteoporosis, Chronic Back Pain (JACKLYN KIM MD) Endocrine History of Endocrine Disorders: Yes Endocrine Disorders: Hypothyroidsim (JACKLYN KIM MD) HEENT Loss of Vision: Denies Hearing Impairment: Denies (JACKLYN KIM MD) Cancer History of Cancer: No (JACKLYN KIM MD) Psychosocial History of Psychiatric Problem: No (JACKLYN KIM MD) Integumentary History of Skin or Integumenta: No (JACKLYN KIM MD) Blood Transfusions History of Blood Disorders: No Adverse Reaction to a Blood Tr: No (JACKLYN KIM MD) Reviewed Nursing Assessment Reviewed/Agree w Nursing PMH: Yes (JACKLYN KIM MD) Family Medical History Significant Family History: No Pertinent Family Hx Family Medial History: CIRR 19 FATHER CIRR 19 FATHER Cardiovascular disease 19 MOTHER DYSTONIA G8 BROTHER FH: cirrhosis 19 FATHER Hypertension 19 MOTHER (JACKLYN KIM MD) Family Medial History: CIRR 19 FATHER CIRR 19 FATHER Cardiovascular disease 19 MOTHER DYSTONIA G8 BROTHER FH: cirrhosis 19 FATHER Hypertension 19 MOTHER (ZEUS CESAR APRN) Physical Exam Vital Signs Vital Sign - Last 12Hours 11/26/17 13:08 Temp 98.0 Pulse 63 Resp 18 B/P (MAP) 177/92 (120) (ZEUS CESAR APRN) Vital Signs Capillary Refill : Less Than 3 Seconds (JACKLYN KIM MD) General Appearance: WD/WN, no apparent distress HEENT: PERRL/EOMI, pharynx normal Neck: full range of motion, supple Cardiovascular: regular rate, rhythm, no murmur Respiratory: lungs clear, normal breath sounds Peripheral Pulses: 2+ Dorsalis Pedis (R), 2+ Left Dors-Pedis (L), 2+ Radial Pulses (R), 2+ Radial Pulses (L) Gastrointestinal: non tender, soft Back: normal inspection, no CVA tenderness, no vertebral tenderness Extremities: non-tender, normal inspection Skin: warm/dry, other (2 cm laceration to the lateral aspect of the left brow. Skin tear lesion to the forehead on the left side.) (JACKLYN KIM MD) Dulce Maria Coma Score Best Eye Response: (4) Open Spontaneously Best Verbal Response: (5) Oriented Best Motor Response: (6) Obeys Commands (JACKLYN KIM MD) Laceration Repair : Wound Location: Face Wound Length (cm): 1.5 Wound's Depth, Shape: sub Q Wound Explored: clean Anesthesia: 1% Lidocaine Volume Anesthetic (ccs): 3 Suture: Prolene Suture Size: 5-0 Number of Sutures: 5 Layer Closure?: 1 Number Deep Layer Sutures: 0 Progress There are 2 separate lacerations to the forehead on the left side. More inferior laceration is 1 cm in length lateral aspect of the left eyebrow. Depth is to the subcutaneous tissues. This was anesthetized with 1 mL of 2% lidocaine without epinephrine. This was then closed with 3 simple interrupted sutures size 5-0 Prolene. The more superior laceration is 0.5 cm and length and is actively oozing blood. This was anesthetized with 1 mL of 2% lidocaine without epinephrine. Wound was then scrubbed with chlorhexidine/saline solution as well and closed with 2 simple interrupted sutures size 5-0 Prolene. (ZEUS CESAR APRN) Progress/Results/Core Measures Results/Orders My Orders Orders - ZEUS CESAR APRN Ct Head/Cervical Spine Wo (11/26/17 13:04) (ZEUS CESAR APRN) Medications Given in ED Current Medications Medications Dose Ordered Sig/Reena Route Start Time Stop Time Status Last Admin Dose Admin Lidocaine HCl 50 ml ONCE ONCE IJ 11/26/17 13:45 1/5/18 13:46 DC 11/26/17 14:04 50 ML (ZEUS CESAR APRN) Vital Signs/I&O Vital Sign - Last 12Hours 11/26/17 13:08 Temp 98.0 Pulse 63 Resp 18 B/P (MAP) 177/92 (120) (ZEUS CESAR APRN) Blood Pressure Mean: 120 Progress Note : Progress Note Seen and evaluated. CT head and neck ordered. Laceration repair by Zeus Cesar APRN. Discharged home with return precautions. Patient verbalize understanding instructions and agreement with plan. (JACKLYN KIM MD) Diagnostic Imaging Diagonstic Imaging: CT Plain Films/CT/US/NM/MRI: c-spine, head Comments VIA [facility]. [place], [place] NAME: JEREMY BALLARD [facility] REC#: [id number] PT STATUS: REG ER : 1930 PHYSICIAN: ZEUS CESAR APRN ADMIT DATE: 11/26/17/ER Draft Date of Exam:11/26/17 CT HEAD/CERVICAL SPINE WO PROCEDURE: CT head and CT cervical spine without contrast. TECHNIQUE: Multiple contiguous axial images were obtained through the brain and cervical spine without the use of intravenous contrast. Sagittal and coronal reformations through the cervical spine were then performed. INDICATION: Fall. Laceration to back of head. FINDINGS: CT HEAD WITHOUT: There is diffuse cortical atrophy. Ventricles are not dilated. There is no evidence of intracranial hemorrhage. No extra-axial fluid collection. Basal cisterns are clear. There is no mass effect. Diffuse white matter change noted bilaterally. Bone windows show no evidence of calvarial fracture. Mastoid air cells are well-aerated and clear. There is opacification of the right maxillary sinus as well as both of the ethmoid sinuses and frontal sinus. IMPRESSION: 1. No acute intracranial abnormalities with diffuse cortical atrophy. 2. Finding consistent with pansinusitis. CT CERVICAL SPINE WITHOUT CONTRAST: Sagittal and coronal reformatted images show good alignment. Body height is well maintained. The atlantoaxial joint is in good alignment with the odontoid intact. Diffuse degenerative cervical disc disease most severe at C4-C5 and C6-C7 and C7-T1. Facets show good alignment with diffuse degenerative facet disease. There are no fractures or subluxations demonstrated. The surrounding soft tissues appear normal. IMPRESSION: Advanced degenerative cervical disc and facet disease with no acute bony changes demonstrated. Dictated on workstation # [id number] Dict: 11/26/17 1333 Trans: 11/26/17 1342 [id number] Interpreted by: RUSH BARTH MD Electronically signed by: (JACKLYN KIM MD) Departure Impression Impression: Primary Impression: Laceration of face Qualified Codes: S01.81XA - Laceration without foreign body of other part of head, initial encounter Additional Impression: Abrasion of forehead Qualified Codes: S00.81XA - Abrasion of other part of head, initial encounter Disposition: HOME, SELF-CARE Condition: Improved Departure-Patient Inst. Decision time for Depature: 13:54 (JACKLYN KIM MD) Referrals: RONEL THOMAS MD (PCP/Family) Primary Care Physician Patient Instructions: Laceration Repair With Stitches (DC), Skin Abrasions (DC) Add. Discharge Instructions: All discharge instructions reviewed with patient and/or family. Voiced understanding. Continue home medications as previously prescribed. Follow-up with your Dr. in a few days for recheck. You may take Tylenol 650 mg every 6 hours as needed for pain. Keep wounds clean. You may shower but do not soak for prolonged periods of time. You may use antibiotic ointment over the sutured wound but not over the glue did wound as that will prematurely cause glue to come off. Sutures out in 5 days. You may return to the ER for suture removal. JACKLYN KIM MD Nov 26, 2017 13:44 ZEUS CESAR APRN Nov 26, 2017 14:24
[2017-11-26] MEDS ORDERED: LIDOCAINE 1% INJ 50 ML (XYLOCAINE) VIAL IJ ONE (13:45)
[2017-11-26 14:46] VITALS: BP 162/100
== END 2017-11-26 14:45 | disposition home or self-care (01) ==
LOC: EDUNIT# 13:02 → ER 13:04
DX: S01.111A Laceration without foreign body of right eyelid and periocular area, initial encounter (principal); I48.91 Unspecified atrial fibrillation; I10 Essential (primary) hypertension; K21.9 Gastro-esophageal reflux disease without esophagitis; J44.9 Chronic obstructive pulmonary disease, unspecified; M81.0 Age-related osteoporosis without current pathological fracture; E03.9 Hypothyroidism, unspecified; Z87.19 Personal history of other diseases of the digestive system; Z79.82 Long term (current) use of aspirin; Z82.49 Family history of ischemic heart disease and other diseases of the circulatory system; W25.XXXA Contact with sharp glass, initial encounter; W18.30XA Fall on same level, unspecified, initial encounter; Y92.481 Parking lot as the place of occurrence of the external cause
CPT/HCPCS: 70450; 72125; 99281

== ENCOUNTER 2018-03-04 11:27 | Emergency (ER) | payer MEDICARE, OTHER ==
[~2018-03-04] VITALS: Ht 152.4 cm; Wt 47.6 kg
--- NOTE | 2018-03-04 11:38 | ED Lower Extremity ---
General Chief Complaint: Trauma-Non Activation Stated Complaint: FALL Source: patient, other (the patient's friends) Exam Limitations: no limitations History of Present Illness Date Seen by Provider: Mar 04, 2018 Time Seen by Provider: 11:33 Initial Comments This 87-year-old female presents after she inadvertently slipped and fell onto a carpeted floor from standing position sustaining an injury to her right hip. The patient had no associated syncopal episode, palpitations or chest pain, shortness of breath, diaphoresis, headache, stiff neck, or photophobia. The patient denies other significant injury in her fall. She does relate that she sustained a minor contusion to her head but has no complaints at this time of either her head or neck. Past medical history of significance includes SVT for which the patient has been treated in the emergency department. Patient had no sensations similar to her previous episodes of SVT. The patient after her fall was able to weight-bear with assistance. She was brought to the emergency department for further evaluation. The patient's normal mode of ambulation is with a walker. Allergies and Home Medications Allergies Coded Allergies: No Known Drug Allergies (Unverified , 04/05/15) Home Medications Aspirin 81 Mg Tablet.dr, 81 MG PO BID, (Reported) Calcium Carbonate/Vitamin D3 1 Each Tablet, 1 TAB PO BID, (Reported) Clonazepam 0.5 Mg Tablet, 0.5 MG PO DAILY, (Reported) Clonazepam 0.5 Mg Tab, 0.5 MG PO DAILY Prescribed by: BARTOLOME VÁSQUEZ on 04/07/15 1628 Enalapril Maleate 10 Mg Tablet, 10 MG PO BID, (Reported) Enalapril Maleate 10 Mg Tab, 20 MG PO BID Prescribed by: REBECA SANCHEZ on 04/16/15 1346 Glucosamine Hcl/Chondr Ortez A Na 1 Each Tablet, 1 TAB PO DAILY, (Reported) Hydrocodone Bit/Acetaminophen 1 Tab Tab, 1 TAB PO Q4H PRN for PAIN Prescribed by: BARTOLOME VÁSQUEZ on 04/07/15 1628 Levothyroxine Sodium 50 Mcg Tab, 50 MCG PO DAILY@0630 Prescribed by: BARTOLOME VÁSQUEZ on 04/07/15 1628 Magnesium Oxide 250 Mg Tablet, 250 MG PO HS, (Reported) [place]-3/Dha/Epa/Fish Oil 1 Each Capsule., 1,000 MG PO BID, (Reported) Propylene Glycol/Peg 400 5 Ml Drops, 1-2 DROP OU QID PRN for DRY EYES, (Reported ) Simvastatin 20 Mg Tablet, 20 MG PO HS, (Reported) Sotalol Hcl 120 Mg Tablet, 120 MG PO BID, (Reported) Trihexyphenidyl Hcl 5 Mg Tablet, 5 MG PO DAILY, (Reported) [Amlodipine Besylate] 10 MG TABLET, 10 MG PO DAILY Prescribed by: REBECA SANCHEZ on 04/16/15 1346 [Ondansetron Hcl] 4 MG TAB, 4 MG PO Q4H PRN for NAUSEA/VOMITING Prescribed by: REBECA SANCHEZ on 04/16/15 1346 [Polyethylene Glycol] 17 GM PACK, 17 GM PO HS Prescribed by: BARTOLOME VÁSQUEZ on 04/07/15 162 [Sotalol Hcl] 80 MG TAB, 120 MG PO BID Prescribed by: BARTOLOME VÁSQUEZ on 04/07/151627 [Trihexyphenidyl Hcl] 5 MG TABLET, 5 MG PO DAILY Prescribed by: BARTOLOME VÁSQUEZ on 04/07/151627 Patient Home Medication List Home Medication List Reviewed: Yes Constitutional: No chills, No fever EENTM: no symptoms reported Respiratory: No cough, No short of breath Cardiovascular: No chest pain Gastrointestinal: No abdominal pain, No nausea, No vomiting Genitourinary: no symptoms reported : No Musculoskeletal: No back pain; joint pain (right hip) Skin: No rash Psychiatric/Neurological: Denies Anxiety, Denies Depressed Past Vwpganx-Bhgnqw-Lefjjj Hx Patient Social History 2nd Hand Smoke Exposure: No Recent Foreign Travel: No Contact w/Someone Who Travel: No Recent Hopitalizations: No Immunizations Up To Date Tetanus Booster (TDap): Less than 5yrs Date of Pneumonia Vaccine: April 04, 2011 Date of Influenza Vaccine: Sep 22, 2017 Seasonal Allergies Seasonal Allergies: No Past Medical History Surgeries: Yes (dental, HIATAL HERNIA, ) Abdominal, Bladder Surgery, Gallbladder Respiratory: Yes COPD Cardiac: No (SVT) Atrial Fibrillation, Hypertension Neurological: Yes (DYSTONIA) Reproductive Disorders: No Female Reproductive Disorders: Denies Sexually Transmitted Disease: No HIV/AIDS: No Gastrointestinal: Yes (HIATAL HERNIA;REPAIRED) Gastroesophageal Reflux, Diverticulosis Musculoskeletal: Yes (L1,L4 COMPRESSION FRACTURES) Osteoporosis, Chronic Back Pain Endocrine: Yes Hypothyroidsim Loss of Vision: Denies Hearing Impairment: Denies Cancer: No Psychosocial: No Integumentary: No Blood Disorders: No Adverse Reaction/Blood Tranf: No Family Medical History Reviewed Nursing Family Hx CIRR 19 FATHER CIRR 19 FATHER Cardiovascular disease 19 MOTHER DYSTONIA G8 BROTHER FH: cirrhosis 19 FATHER Hypertension 19 MOTHER No Pertinent Family Hx Physical Exam Vital Signs Vital Signs - First Documented 03/04/18 11:31 Temp 98.1 Pulse 65 Resp 18 B/P (MAP) 163/125 (138) Pulse Ox 96 O2 Delivery Room Air Capillary Refill : General Appearance: WD/WN, mild distress HEENT: normal ENT inspection Neck: full range of motion, supple Cardiovascular: regular rate, rhythm Respiratory: lungs clear, normal breath sounds, no respiratory distress Gastrointestinal: normal bowel sounds, non tender, soft Back: normal inspection Hips: right hip pain (patient's pain is primarily over the greater trochanter of the right hip.) Legs: bilateral leg non-tender, bilateral leg normal inspection, bilateral leg normal range of motion Knees: bilateral knee non-tender, bilateral knee normal inspection, bilateral knee normal range of motion Ankles: bilateral ankle non-tender, bilateral ankle normal inspection Feet: bilateral foot non-tender, bilateral foot normal inspection, bilateral foot normal range of motion Neurologic/Tendon: normal sensation, normal motor functions Neurologic/Psychiatric: no motor/sensory deficits, alert, normal mood/affect, oriented x 3 Skin: normal color, warm/dry Procedures/Interventions Suture Size: 5-0 Progress/Results/Core Measures My Orders Orders - JOSE LUIS SMITH MD Pelvis With Right Hip 2-3views (03/04/18 11:32) Ct Extremity Lower Right Wo (03/04/18 12:59) Vital Signs/I&O 03/04/18 11:31 Temp 98.1 Pulse 65 Resp 18 B/P (MAP) 163/125 (138) Pulse Ox 96 O2 Delivery Room Air Progress Note : Time: 12:37 Progress Note 12:30 The patient's pelvis and right hip radiographs demonstrated a questionable fracture of the superior ramus of the right pelvis. Patient was sent to CT for further imaging. 13:45 CT of the pelvis and right hip confirm the nondisplaced small fracture of the right superior ramus. The findings were discussed with the patient. Fracture will be treated conservatively with follow-up with the patient's primary care physician and orthopedic surgeon. Patient will be allowed to use her walker for ambulation. She uses Naprosyn twice daily. We added hydrocodone for pain at night. I asked the patient to return if she had any further problems or questions. Departure Impression Primary Impression: Fracture, pelvis closed Qualified Codes: S32.501A - Unspecified fracture of right pubis, initial encounter for closed fracture Disposition: HOME, SELF-CARE Condition: Unchanged Departure-Patient Inst. Decision time for Depature: 13:50 Referrals: CECILIA KOHLI JOHN D MD (PCP/Family) Primary Care Physician Patient Instructions: Pelvic Fracture (DC) Add. Discharge Instructions: Naprosyn for pain during the day. Hydrocodone for pain at night. Follow-up with your primary care physician, Dr. Laura, and your orthopedic surgeon, Dr. Kohli. Return if any problems or questions All discharge instructions reviewed with patient and/or family. Voiced understanding. JOSE LUIS SMITH MD Mar 04, 2018 11:38
--- NOTE | 2018-03-04 11:56 | Diagnostic Imaging Report ---
INDICATION: Fall with right hip pain. TIME OF EXAMINATION: 12:07 PM. TECHNIQUE: An AP view of the pelvis and two views of the right hip were obtained. FINDINGS: The femoroacetabular alignment is normal bilaterally. Both femoral heads and necks are intact. The joint spaces are maintained. No hip fracture is seen. There does appear to be a probable fracture involving the right superior pubic ramus, nondisplaced. The inferior rami appear intact. IMPRESSION: No evidence of hip fracture. There are findings suggestive of a right superior pubic ramus fracture. Dictated by: Dictated on workstation # [id number]
--- NOTE | 2018-03-04 13:24 | Diagnostic Imaging Report ---
PROCEDURE: CT right lower extremity without contrast. TECHNIQUE: Axially acquired CT was obtained through the right lower extremity without intravenous contrast. Coronal and sagittal reformations were also performed. INDICATION: Right hip pain after fall. COMPARISON: Pelvis radiographs performed earlier same day. FINDINGS: Osteoporosis. There is no acute fracture of the proximal right femur. No hip dislocation. There is an acute, mildly comminuted fracture of the superior left pubic ramus which extends into the pubic body. No discrete fracture in the inferior right pubic ramus. No fracture in the right sacral ala. There is a likely subacute to chronic fracture of the inferior aspect of the S2 vertebral body. IMPRESSION: 1. No fracture of the proximal right femur. 2. Acute, mildly comminuted fracture left superior pubic ramus extending to the pubic body. 3. No additional acute fracture in the visualized aspects of the right hemipelvis. CT of the pelvis may be warranted for further characterization of an additional potential pelvic fracture. Dictated by: Dictated on workstation # [id number]
[2018-03-04 14:11] VITALS: BP 169/105
--- OUTSIDE RECORDS SUMMARY | 2018-03-06 07:32 | XMS REPORT | Encounter Summary ---
Author Author [facility] Organization [facility] Address Unknown Phone Unavailable Care Team Providers Care Gambreler Helper Name Role Phone Raul Santos MD Unavailable Reason for Visit * Reason Comments Medication Refill Artane 5 mg Po Encounter Details Date Type Department Care Team Description 01/04/2018 Telephone [facility] Raul Santos MD Medication Refill (Artane [facility] [address] 5 mg Po) [facility] [address] [place] [address] [place], [place] [phone] [id number] [phone] Social History Tobacco Use Types Packs/Day Years Used Date Never Smoker Sex Assigned at Date Recorded Not on file as of this encounter Miscellaneous Notes * Telephone Encounter - Amalia Miller LPN - 01/04/2018 11:24 AM [facility] Per Dr Santos Ok to refill RX Artane 5 mg /tablets ,take 1 tab by mouth daily.Dispense 90 tablets with 3 refills. Rx was verified with pharmacist Yana. in this encounter Plan of Treatment Not on fileas of this encounter Visit Diagnoses Not on filein this encounter
--- OUTSIDE RECORDS SUMMARY | 2018-03-06 07:32 | XMS REPORT | Continuity of Care Document ---
Author Author [employer] Organization [facility] Address Unknown Phone Unavailable Care Team Providers Care Streetcar Motorman Name Role Phone [employer] Unavailable Unavailable Problems Medications Allergies, Adverse Reactions, Alerts Immunizations Results Vital Signs Encounters Location Location Details Encounter Type Encounter Number Reason For Visit Attending Provider ADM Date DC Date Status Source [facility] [place] [facility] Procedures Plan of Care Social History Assessment and Plan Family History Advance Directives Functional Status
--- OUTSIDE RECORDS SUMMARY | 2018-03-06 07:32 | XMS REPORT | Clinical Summary ---
Author Author [facility] Organization [facility] Address Unknown Phone Unavailable Care Team Providers Care Technical Assistance Consultant Name Role Phone Raul Santos MD Unavailable Source Comments Some departments are not documenting in the electronic medical record. If you do not see the information that you expected, contact Release of Information in the Health Information Management department at [phone] for further assistance in locating additional records.[facility] Allergies No Known Allergies Current Medications Prescription [...] mg tabletIndications: daily. 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
--- OUTSIDE RECORDS SUMMARY | 2018-03-06 07:34 | XMS REPORT | Continuity of Care Document ---
Author Author [facility] Organization [facility] Address Unknown Phone Unavailable Allergies Active Description Code Type Severity Reaction Onset Reported/Identified Relationship to Patient Clinical Status Yes codeine [id number] Drug Allergy Mild N/A 08/08/2008 Yes No Known Drug Allergies [id number] Drug Allergy Unknown N/A 04/05/2015 Medications There is no data. Problems Date Dx Coded Attending Type Code Diagnosis Diagnosed By 06/23/2014 ZEUS CERON APRN Ot 401.9 HYPERTENSION NOS 06/23/2014 ZEUS CERON APRN Ot 715.35 LOC OSTEOARTH NOS-PELVIS 06/23/2014 ZEUS CERON APRN Ot 719.45 JOINT PAIN-PELVIS 06/23/2014 ZEUS CERON APRN Ot 733.90 BONE CARTILAGE DIS NOS 06/23/2014 ZEUS CERON APRN Ot V58.66 LONG-TERM (CURRENT) USE OF ASPIRIN 06/23/2014 ZEUS CERON APRN Ot V58.69 OTH MED,LT,CURRENT USE 04/02/2015 MIGUELANGEL RAHMAN Ot 599.0 URIN TRACT INFECTION NOS 04/02/2015 MIGUELANGEL RAHMAN Ot 733.13 PATHOLOGIC FRACTURE, VERTEBRAE 04/02/2015 MIGUELANGEL RAHMAN Ot 789.06 ABDOMINAL PAIN, EPIGASTRIC 04/02/2015 MIGUELANGEL RAHMAN Ot V58.69 OTH MED,LT,CURRENT USE 04/05/2015 Ot 733.00 04/05/2015 Ot V58.69 04/05/2015 Ot 733.00 04/05/2015 Ot V58.69 04/07/2015 RONEL THOMAS MD Ot 041.49 OTHER AND UNSPECIFIED ESCHERICHIA COLI [ 04/07/2015 RONEL THOMAS MD Ot 244.9 HYPOTHYROIDISM NOS 04/07/2015 RONEL THOMAS MD Ot 272.4 HYPERLIPIDEMIA NEC/NOS 04/07/2015 RONEL THOMAS MD Ot 401.9 HYPERTENSION NOS 04/07/2015 RONEL THOMAS MD Ot 427.31 ATRIAL FIBRILLATION 04/07/2015 RONEL THOMAS MD Ot 433.10 CAROTID ARTERY OCCLUSION W O CEREBRAL IN 04/07/2015 RONEL THOMAS MD Ot 496 CHR AIRWAY OBSTRUCT NEC 04/07/2015 RONEL THOMAS MD Ot 530.81 ESOPHAGEAL REFLUX 04/07/2015 RONEL THOMAS MD Ot 562.10 DIVERTICULOSIS COLON (W/O MENT OF HEMORR 04/07/2015 RONEL THOMAS MD Ot 599.0 URIN TRACT INFECTION NOS 04/07/2015 RONEL THOMAS MD Ot 724.8 OTHER BACK SYMPTOMS 04/07/2015 RONEL THOMAS MD Ot 733.00 OSTEOPOROSIS NOS 04/07/2015 RONEL THOMAS MD Ot 781.0 ABN INVOLUN MOVEMENT NEC 04/07/2015 RONEL THOMAS MD Ot V15.82 HISTORY OF TOBACCO USE 04/12/2015 RAFITA MONCADA, RUSH E Ot 244.9 04/12/2015 RAFITA MONCADA, RUSH E Ot 272.4 04/12/2015 RAFITA MONCADA RUSH E Ot 401.9 04/12/2015 RAFITA MONCADA RUSH E Ot 427.31 04/12/2015 RAFITA MONCADA, RUSH E Ot 433.10 04/12/2015 RAFITA MONCADA RUSH E Ot 496 04/12/2015 RAFITA MONCADA, [...] MONCADA, RUSH E Ot 401.9 04/12/2015 RAFITA MONCADA RUSH E Ot 427.31 04/12/2015 RAFITA MONCADA RUSH E Ot 433.10 04/12/2015 RUSH ELLER MD Ot 496 04/12/2015 RUSH ELLER MD E Ot 530.81 04/12/2015 RUSH ELLER MD E Ot 562.10 04/12/2015 RUSH ELLER MD E Ot 564.00 04/12/2015 RUSH ELLER MD E Ot 599.0 04/12/2015 RUSH ELLER MD Ot 724.5 04/12/2015 RUSH ELLER MD Ot 729.82 04/12/2015 RUSH ELLER MD Ot 733.00 04/12/2015 RUSH ELLER MD Ot V13.51 04/12/2015 RUSH ELLER MD E Ot V57.89 04/16/2015 RUSH ELLER MD Ot 244.9 HYPOTHYROIDISM NOS 04/16/2015 RUSH ELLER MD E Ot 272.4 HYPERLIPIDEMIA NEC/NOS 04/16/2015 RUSH ELLER MD Ot 401.9 HYPERTENSION NOS 04/16/2015 RUSH ELLER MD E Ot 427.31 ATRIAL FIBRILLATION 04/16/2015 RUSH ELLER MD E Ot 433.10 CAROTID ARTERY OCCLUSION W O CEREBRAL IN 04/16/2015 RUSH ELLER MD E Ot 496 CHR AIRWAY OBSTRUCT NEC 04/16/2015 RUSH ELLER MD E Ot 530.81 ESOPHAGEAL REFLUX 04/16/2015 RUSH ELLER MD E Ot 562.10 DIVERTICULOSIS COLON (W/O MENT OF HEMORR 04/16/2015 RUSH ELLER MD E Ot 564.00 UNSPEC CONSTIPATION 04/16/2015 RUSH ELLER MD Ot 599.0 URIN TRACT INFECTION NOS 04/16/2015 RUSH ELLER MD E Ot 724.5 BACKACHE NOS 04/16/2015 RUSH ELLER MD E Ot 729.82 CRAMP IN LIMB 04/16/2015 RUSH ELLER MD E Ot 733.00 OSTEOPOROSIS NOS 04/16/2015 RUSH ELLER MD E Ot V13.51 PERSONAL HISTORY OF PATHOLOGIC FRACTURE 04/16/2015 RUSH ELLER MD Ot V57.89 REHABILITATION PROC NEC 01/17/2016 ESTEFANÍA EATON MD Ot E78.2 01/17/2016 ESTEFANÍA EATON MD Ot I10 01/17/2016 ESTEFANÍA EATON MD Ot I48.3 01/17/2016 ESTEFANÍA EATON MD Ot I65.23 01/17/2016 ESTEFANÍA EATON MD Ot R06.02 10/07/2017 JACKLYN KIM MD Ot E03.9 HYPOTHYROIDISM, UNSPECIFIED 10/07/2017 JACKLYN KIM MD Ot I10 ESSENTIAL (PRIMARY) HYPERTENSION 10/07/2017 JACKLYN KIM MD Ot I48.0 PAROXYSMAL ATRIAL FIBRILLATION 10/07/2017 JACKLYN KIM MD, Ot J44.9 CHRONIC OBSTRUCTIVE PULMONARY DISEASE, U 10/07/2017 JACKLYN KIM MD Ot K21.9 GASTRO-ESOPHAGEAL REFLUX DISEASE WITHOUT 10/07/2017 JACKLYN KIM MD Ot M81.0 AGE-RELATED OSTEOPOROSIS W/O CURRENT PAT 10/07/2017 JACKLYN KIM MD Ot R00.2 PALPITATIONS 10/07/2017 JACKLYN KIM MD Ot Z79.82 RETIREMENT (CURRENT) USE OF ASPIRIN 10/07/2017 JACKLYN KIM MD Ot Z82.49 FAMILY HX OF ISCHEM HEART DIS AND OTH DI 10/07/2017 JACKLYN KIM MD Ot Z87.19 PERSONAL HISTORY OF OTHER DISEASES OF TH 10/07/2017 JACKLYN KIM MD Ot Z87.891 PERSONAL HISTORY OF NICOTINE DEPENDENCE 10/11/2017 JACKLYN KIM MD Ot E03.9 HYPOTHYROIDISM, UNSPECIFIED 10/11/2017 JACKLYN KIM MD Ot I10 ESSENTIAL (PRIMARY) HYPERTENSION 10/11/2017 JACKLYN KIM MD Ot I48.0 PAROXYSMAL ATRIAL FIBRILLATION 10/11/2017 JACKLYN KIM MD, Ot J44.9 CHRONIC OBSTRUCTIVE PULMONARY DISEASE, U 10/11/2017 JACKLYN KIM MD Ot K21.9 GASTRO-ESOPHAGEAL REFLUX DISEASE WITHOUT 10/11/2017 JACKLYN KIM MD Ot M81.0 AGE-RELATED OSTEOPOROSIS W/O CURRENT PAT 10/11/2017 JACKLYN KIM MD Ot R00.2 PALPITATIONS 10/11/2017 JACKLYN KIM MD Ot Z79.82 RETIREMENT (CURRENT) USE OF ASPIRIN 10/11/2017 JACKLYN KIM MD Ot Z82.49 FAMILY HX OF ISCHEM HEART DIS AND OTH DI 10/11/2017 JACKLYN KIM MD Ot Z87.19 PERSONAL HISTORY OF OTHER DISEASES OF 10/11/2017 JACKLYN KIM MD Ot Z87.891 PERSONAL HISTORY OF NICOTINE DEPENDENCE 10/14/2017 JACKLYN KIM MD Ot E03.9 HYPOTHYROIDISM, UNSPECIFIED 10/14/2017 JACKLYN KIM MD Ot I10 ESSENTIAL (PRIMARY) HYPERTENSION 10/14/2017 JACKLYN KIM MD Ot I48.0 PAROXYSMAL ATRIAL FIBRILLATION 10/14/2017 JACKLYN KIM MD, Ot J44.9 CHRONIC OBSTRUCTIVE PULMONARY DISEASE, U 10/14/2017 JACKLYN KIM MD, Ot K21.9 GASTRO-ESOPHAGEAL REFLUX DISEASE WITHOUT 10/14/2017 JACKLYN KIM MD Ot M81.0 AGE-RELATED OSTEOPOROSIS W/O CURRENT PAT 10/14/2017 JACKLYN IKM MD Ot R00.2 PALPITATIONS 10/14/2017 JACKLYN KIM MD Ot Z79.82 RETIREMENT (CURRENT) USE OF ASPIRIN 10/14/2017 JACKLYN KIM MD Ot Z82.49 FAMILY HX OF ISCHEM HEART DIS AND OTH DI 10/14/2017 JACKLYN KIM MD Ot Z87.19 PERSONAL HISTORY OF OTHER DISEASES OF 10/14/2017 JACKLYN KIM MD Ot Z87.891 PERSONAL HISTORY OF NICOTINE DEPENDENCE 11/26/2017 ZEUS CERON APRN Ot E03.9 HYPOTHYROIDISM, UNSPECIFIED 11/26/2017 ZEUS CERON APRN Ot I10 ESSENTIAL (PRIMARY) HYPERTENSION 11/26/2017 ZEUS CERON APRN Ot I48.91 UNSPECIFIED ATRIAL FIBRILLATION 11/26/2017 ZEUS CERON APRN Ot J44.9 CHRONIC OBSTRUCTIVE PULMONARY DISEASE, U 11/26/2017 ZEUS CERON APRN Ot K21.9 GASTRO-ESOPHAGEAL REFLUX DISEASE WITHOUT 11/26/2017 ZEUS CERON APRN Ot M81.0 AGE-RELATED OSTEOPOROSIS W/O CURRENT PAT 11/26/2017 ZEUS CERON APRN Ot S01.111A LACERATION W/O FB OF RIGHT EYELID AND PE 11/26/2017 ZEUS CERON APRN Ot W18.30XA FALL ON SAME LEVEL, UNSPECIFIED, INITIAL 11/26/2017 ZEUS CERON APRN Ot W25.XXXA CONTACT WITH [place], INITIAL ENCOUN 11/26/2017 ZEUS CERON APRN Ot Y92.[address] OF OCCURRENCE O 11/26/2017 ZEUS CERON APRN Ot Z79.82 RETIREMENT (CURRENT) USE OF ASPIRIN 11/26/2017 ZEUS CERON APRN Ot Z82.49 FAMILY HX OF ISCHEM HEART DIS AND OTH DI 11/26/2017 ZEUS CERON APRN Ot Z87.19 PERSONAL HISTORY OF OTHER DISEASES OF TH 03/04/2018 Ot 397.0 TRICUSPID VALVE DISEASE 03/04/2018 Ot 401.9 HYPERTENSION NOS 03/04/2018 Ot 424.0 MITRAL VALVE DISORDER 03/04/2018 Ot 427.1 PAROX VENTRIC TACHYCARD 03/04/2018 Ot 786.50 CHEST PAIN NOS 03/04/2018 Ot 401.9 HYPERTENSION NOS 03/04/2018 Ot 427.0 PAROX ATRIAL TACHYCARDIA 03/04/2018 Ot 786.50 CHEST PAIN NOS 03/04/2018 RONEL THOMAS MD Ot 786.09 RESPIRATORY ABNORM NEC 03/04/2018 RONEL THOMAS MD Ot 786.2 COUGH 03/04/2018 RONEL THOMAS MD Ot V15.82 HISTORY OF TOBACCO USE 03/04/2018 RONEL THOMAS MD Ot V76.12 OTH SCREEN MAMMO-MALIGN NEOPLASM OF CHHAYA 03/04/2018 ESTEFANÍA EATON MD Ot E78.2 MIXED HYPERLIPIDEMIA 03/04/2018 ESTEFANÍA EATON MD Ot I10 ESSENTIAL (PRIMARY) HYPERTENSION 03/04/2018 ESTEFANÍA EATON MD Ot I48.3 TYPICAL ATRIAL FLUTTER 03/04/2018 ESTEFANÍA EATON MD Ot 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 Results Test Result Range Complete blood count (CBC) with automated white blood cell (WBC) differential - 10/07/17 09:45 Blood leukocytes automated count (number/volume) 6.7 10*3/uL 4.3-11.0 Blood erythrocytes automated count (number/volume) 4.62 10*6/uL 4.35-5.85 Venous blood hemoglobin measurement (mass/volume) 14.0 g/dL 11.5-16.0 Blood hematocrit (volume fraction) 42 % 35-52 Automated erythrocyte mean corpuscular volume 90 [foz_us] 80-99 Automated erythrocyte mean corpuscular hemoglobin (mass per erythrocyte) 30 pg 25-34 Automated erythrocyte mean corpuscular hemoglobin concentration measurement ( mass/volume) 34 g/dL 32-36 Automated erythrocyte distribution width ratio 13.1 % 10.0-14.5 Automated blood platelet count (count/volume) 304 10*3/uL 130-400 Automated blood platelet mean volume measurement 11.2 [foz_us] 7.4-10.4 Automated blood neutrophils/100 leukocytes 59 % 42-75 Automated blood lymphocytes/100 leukocytes 28 % 12-44 Blood monocytes/100 leukocytes 9 % 0-12 Automated blood eosinophils/100 leukocytes 3 % 0-10 Automated blood basophils/100 leukocytes 1 % 0-10 Blood neutrophils automated count (number/volume) 3.9 10*3 1.8-7.8 Blood lymphocytes automated count (number/volume) 1.9 10*3 1.0-4.0 Blood monocytes automated count (number/volume) 0.6 10*3 0.0-1.0 Automated eosinophil count 0.2 10*3/uL 0.0-0.3 Automated blood basophil count (count/volume) 0.1 10*3/uL 0.0-0.1 PT panel in platelet poor plasma by coagulation assay - 10/07/17 09:45 Prothrombin time (PT) in platelet poor plasma by coagulation assay 13.6 s 12.2-14.7 INR in platelet poor plasma or blood by coagulation assay 1.0 0.8-1.4 Activated partial thromboplastin time (aPTT) in platelet poor plasma bycoagulation assay - 10/07/17 09:45 Activated partial thromboplastin time (aPTT) in platelet poor plasma bycoagulation assay 34 s 24-35 Comprehensive metabolic panel - 10/07/17 09:45 Serum or plasma sodium measurement (moles/volume) 137 mmol/L 135-145 Serum or plasma potassium measurement (moles/volume) 4.1 mmol/L 3.6-5.0 Serum or plasma chloride measurement (moles/volume) 102 mmol/L 98-107 Carbon dioxide 25 mmol/L 21-32 Serum or plasma anion gap determination (moles/volume) 10 mmol/L 5-14 Serum or plasma urea nitrogen measurement (mass/volume) 24 mg/dL 7-18 Serum or plasma creatinine measurement (mass/volume) 0.80 mg/dL 0.60-1.30 Serum or plasma urea nitrogen/creatinine mass ratio 30 NRG Serum or plasma creatinine measurement with calculation of estimated glomerular filtration rate > NRG Serum or plasma glucose measurement (mass/volume) 99 mg/dL 70-105 Serum or plasma calcium measurement (mass/volume) 9.4 mg/dL 8.5-10.1 Serum or plasma total bilirubin measurement (mass/volume) 0.5 mg/dL 0.1-1.0 Serum or plasma alkaline phosphatase measurement (enzymatic activity/volume) 80 U/L 40-136 Serum or plasma aspartate aminotransferase measurement (enzymatic activity/ volume) 22 U/L 5-34 Serum or plasma alanine aminotransferase measurement (enzymatic activity/volume ) 16 U/L 0-55 Serum or plasma protein measurement (mass/volume) 7.2 g/dL 6.4-8.2 Serum or plasma albumin measurement (mass/volume) 3.7 g/dL 3.2-4.5 Magnesium - 10/07/17 09:45 Magnesium 1.6 mg/dL 1.8-2.4 Myoglobin, serum - 10/07/17 09:45 Myoglobin, serum 60.8 ng/mL 10.0-92.0 Serum or plasma troponin i.cardiac measurement (mass/volume) - 10/07/17 09:45 Serum or plasma troponin i.cardiac measurement (mass/volume) < ng/ mL <0.30 Myoglobin, serum - 10/07/17 09:45 Myoglobin, serum 60.8 ng/mL 10.0-92.0 Encounters ACCT No. Visit Date/Time Discharge Status Pt. Type Provider Facility Loc./Unit Complaint [id number] 03/04/2018 11:28:00 03/04/2018 14:18:00 DIS Emergency SARAH MONCADA, JOSE LUIS Cintron [facility] ER FALL [id number] 11/26/2017 13:04:00 11/26/2017 14:45:00 DIS Emergency ZEUS CERON APRN [facility] ER FALL, HEAD INJ [id number] 10/07/2017 09:33:00 10/07/2017 11:20:00 DIS Emergency JUDY MONCADA, JACKLYN Anderson [facility] ER BP LOW,HR HIGH [id number] 12/23/2015 14:12:00 12/23/2015 23:59:59 CLS Outpatient UMA MONCADA, ESTEFANÍA Moreira [facility] CARD ATRIAL FLUTTER, CARIDAD, DYSPNEA,HTN,HLP [id number] 04/07/2015 15:00:00 04/16/2015 14:30:00 DIS Inpatient RAFITA MONCADA, RUSH Warner [facility] IRF GENERAL DEBILITY [id number] 04/03/2015 20:19:00 04/07/2015 15:45:00 DIS Inpatient MARTHA MONCADA, RONEL Anderson [facility] SURGICAL UTI,N/V [id number] 04/02/2015 10:05:00 04/02/2015 14:51:00 DIS Emergency MIGUELANGEL RAHMAN [facility] ER UPPER ABD PAIN [id number] 06/23/2014 10:42:00 06/23/2014 12:00:00 DIS Emergency ZEUS CERON INSTITUTIONAL RESEARCH COORDINATOR [facility] ER LEFT HIP PAIN [id number] 07/26/2013 09:02:00 07/26/2013 23:59:59 CLS Outpatient RONEL THOMAS MD [facility] RAD ROUTINE,[place],COUGH, SMOKING HX [id number] 10/03/2012 07:40:00 Document Registration [id number] 09/16/2012 08:46:00 Document Registration [id number] 02/10/2012 00:00:00 Document Registration
== END 2018-03-04 14:18 | disposition home or self-care (01) ==
LOC: EDUNIT# 11:27 → ER 11:28
DX: S32.512A Fracture of superior rim of left pubis, initial encounter for closed fracture (principal); J44.9 Chronic obstructive pulmonary disease, unspecified; I48.91 Unspecified atrial fibrillation; I10 Essential (primary) hypertension; K21.9 Gastro-esophageal reflux disease without esophagitis; M81.0 Age-related osteoporosis without current pathological fracture; E03.9 Hypothyroidism, unspecified; Z79.82 Long term (current) use of aspirin; Z87.19 Personal history of other diseases of the digestive system; Z82.49 Family history of ischemic heart disease and other diseases of the circulatory system; W01.0XXA Fall on same level from slipping, tripping and stumbling without subsequent striking against object, initial encounter
CPT/HCPCS: 73700

== ENCOUNTER → 2018-06-23 | Outpatient (CLI) | payer MEDICARE, OTHER | LOC: CARD 08:41 | PROVIDERS: ATTEND Internal Medicine Cardiovascular Disease | DX: I48.92 Unspecified atrial flutter (principal); I65.23 Occlusion and stenosis of bilateral carotid arteries; R06.00 Dyspnea, unspecified; I10 Essential (primary) hypertension; E78.2 Mixed hyperlipidemia; I47.1 Supraventricular tachycardia | CPT/HCPCS: 93306 ==

== ENCOUNTER 2019-07-31 11:05 | Outpatient (RCR) | payer MEDICARE, OTHER | END 2019-07-31 11:34 | disposition home or self-care (01) | PROVIDERS: ATTEND Internal Medicine | DX: R32 Unspecified urinary incontinence (principal); I10 Essential (primary) hypertension; M81.0 Age-related osteoporosis without current pathological fracture ==

== ENCOUNTER → 2019-09-18 | Outpatient (CLI) | payer MEDICARE, OTHER ==
--- NOTE | 2019-09-18 13:47 | Diagnostic Imaging Report ---
INDICATION: Left-sided pain. Time of exam 11:07 a.m. COMPARISON: Comparison is made with prior chest from 10/07/2017. FINDINGS: Heart size is stable. Tortuosity of the descending thoracic aorta is noted. Lungs are hyperinflated consistent with COPD. No infiltrates are seen. There is no effusion. No pneumothorax is identified. IMPRESSION: COPD. No acute cardiopulmonary process is detected. Results were discussed with Dr. Laura prior to this dictation. Dictated by: Dictated on workstation # [id number]
== END ==
LOC: RAD 10:46
PROVIDERS: ATTEND Internal Medicine
DX: J44.9 Chronic obstructive pulmonary disease, unspecified (principal)
CPT/HCPCS: 71046

== ENCOUNTER → 2019-10-04 | Outpatient (CLI) | payer MEDICARE, OTHER ==
--- NOTE | 2019-10-04 15:26 | Diagnostic Imaging Report ---
INDICATION: Cough, lower rib pain. PA and lateral chest. FINDINGS: There are multiple compression fractures of the thoracic spine of indeterminate age. There is tortuosity of the aorta. Heart size and pulmonary vascularity are normal. Lungs are clear. There are no effusions or pneumothoraces. IMPRESSION: Multiple compression fractures of the thoracic spine. Advanced degenerative changes in both shoulders. Chest is otherwise unremarkable. Dictated by: Dictated on workstation # [email or web address]
--- NOTE | 2019-10-04 15:30 | Diagnostic Imaging Report ---
Indication: Bilateral rib pain There is generalized osteopenia. There appears to be old healed fractures in the left thoracic cage. There are no acute displaced rib fracture seen. IMPRESSION: Old fractures left ribs. No acute abnormality seen. Dictated by: Dictated on workstation # [email or web address]
== END ==
LOC: RAD 14:57
PROVIDERS: ATTEND Internal Medicine
DX: M48.54XA Collapsed vertebra, not elsewhere classified, thoracic region, initial encounter for fracture (principal); M19.012 Primary osteoarthritis, left shoulder; M19.011 Primary osteoarthritis, right shoulder; R06.02 Shortness of breath
CPT/HCPCS: 71046; 71110

== ENCOUNTER → 2019-10-13 | Outpatient (CLI) | payer MEDICARE, OTHER ==
--- NOTE | 2019-10-13 14:46 | Diagnostic Imaging Report ---
PROCEDURE: MRI lumbar spine. TECHNIQUE: Multiplanar, multisequence MRI of the lumbar spine was performed without contrast. INDICATION: Back pain. COMPARISON: 04/04/2015. FINDINGS: There are five lumbar-type vertebral bodies for the purposes of this report. Mild right apex thoracolumbar scoliosis. Grade 2 retrolisthesis of L1 on L2. Grade 1 anterolisthesis of L3 on L4 and L4 on L5. Stable chronic superior endplate height loss of approximately 20% involving L4. Chronic anterior wedging of T11 is stable. No new vertebral body height loss. No abnormal signal in the conus which terminates at L2. Normal morphology of the cauda equina. Visualized abdominal and pelvic contents are unremarkable. L1-L2: No spinal canal or lateral recess narrowing. Disc space height loss and the retrolisthesis results in moderate bilateral neural foraminal narrowing. L2-L3: No spinal canal, lateral recess narrowing. Mild bilateral neural foraminal narrowing. L3-L4: No spinal canal or lateral recess narrowing. Mild bilateral neural foraminal narrowing. L4-L5: Posterior disc osteophyte complex and ligamentous hypertrophy result in moderate left lateral recess and mild spinal canal narrowing. Moderate left and mild right neural foraminal narrowing. L5-S1: No substantial spinal canal or lateral recess narrowing. Moderate bilateral neural foraminal narrowing. IMPRESSION: 1. Mild interval progression of spondylotic changes with increasing left lateral recess narrowing at L4-L5 which is now moderate. No high-grade spinal canal narrowing. Multilevel [id number] neural foraminal narrowing detailed above. 2. Stable height loss of the T11 and L4 segments. No acute compression fractures. Dictated by: Dictated on workstation # [id number]
== END ==
LOC: RAD 13:31
PROVIDERS: ATTEND Orthopaedic Surgery
DX: M47.816 Spondylosis without myelopathy or radiculopathy, lumbar region (principal); M48.07 Spinal stenosis, lumbosacral region; M51.35 Other intervertebral disc degeneration, thoracolumbar region
CPT/HCPCS: 72148

== ENCOUNTER 2021-02-07 11:58 | Emergency (ER) | payer MEDICARE, OTHER ==
[~2021-02-07] VITALS: Ht 149 cm; Wt 40.8 kg
--- NOTE | 2021-02-07 12:30 | ED Fall/Injury ---
General Chief Complaint: Chest Wall Stated Complaint: FALL CHEST SORENESS/SOA Source: patient Exam Limitations: no limitations History of Present Illness Date Seen by Provider: Feb 07, 2021 Time Seen by Provider: 12:05 Initial Comments This is a well-appearing 89-year-old female who ambulated independently into the ER with a walker. Arrived via POV with her son with complaints of chest soreness and shortness of air after falling into her washing machine 2 days ago. States she was reaching across to grab something when she fell forward into her washing machine. Had sudden onset of sharp sternal pain. States pain had seemed to improve and was much better yesterday, however when she woke this morning she had increasing shortness of air and felt like she could not "take a deep breath". Currently rating pain 8 out of 10, sharp in nature, worse with breathing, improved with sitting still. Took 2 Aleve at 8 AM this morning with no relief. Additionally she required a Salonpas patch to her sternum and this has not improved any of her symptoms. Denies fever, cough, vomiting, abdominal pain. Reports chronic history of nausea, but this is not changed in frequency or severity since the accident. Severity: moderate Injuries/Pain Location: chest Context: lost balance Loss of Consciousness: no loss of consciousness Modifying Factors: Improves With Immobilization; Worse With Movement Allergies and Home Medications Allergies Coded Allergies: No Known Drug Allergies (Unverified , 04/05/15) Home Medications Aspirin 81 Mg Tablet.dr, 81 MG PO BID, (Reported) Calcium Carbonate/Vitamin D3 1 Each Tablet, 1 TAB PO BID, (Reported) Clonazepam 0.5 Mg Tablet, 0.5 MG PO DAILY, (Reported) Clonazepam 0.5 Mg Tab, 0.5 MG PO DAILY Prescribed by: BARTOLOME VÁSQUEZ on 04/07/15 1628 Cyclobenzaprine HCl 5 Mg Tablet, 5 MG PO Q8H Prescribed by: FAUSTO MCINTOSH on 02/07/21 1326 Enalapril Maleate 10 Mg Tablet, 10 MG PO BID, (Reported) Enalapril Maleate 10 Mg Tab, 20 MG PO BID Prescribed by: REBECA SANCHEZ on 04/16/15 1346 Glucosamine Hcl/Chondr Ortez A Na 1 Each Tablet, 1 TAB PO DAILY, (Reported) Hydrocodone Bit/Acetaminophen 1 Tab Tab, 1 TAB PO Q4H PRN for PAIN Prescribed by: BARTOLOME VÁSQUEZ on 04/07/15 162 Levothyroxine Sodium 50 Mcg Tab, 50 MCG PO DAILY@0630 Prescribed by: BARTOLOME VÁSQUEZ on 04/07/15 162 Magnesium Oxide 250 Mg Tablet, 250 MG PO HS, (Reported) Hubbell-3/Dha/Epa/Fish Oil 1 Each Capsule.dr, 1,000 MG PO BID, (Reported) Propylene Glycol/Peg 400 5 Ml Drops, 1-2 DROP OU QID PRN for DRY EYES, (Reported) Simvastatin 20 Mg Tablet, 20 MG PO HS, (Reported) Sotalol Hcl 120 Mg Tablet, 120 MG PO BID, (Reported) Trihexyphenidyl Hcl 5 Mg Tablet, 5 MG PO DAILY, (Reported) [Amlodipine Besylate] 10 MG TABLET, 10 MG PO DAILY Prescribed by: REBECA SANCHEZ on 04/16/15 1346 [Ondansetron Hcl] 4 MG TAB, 4 MG PO Q4H PRN for NAUSEA/VOMITING Prescribed by: REBECA SANCHEZ on 04/16/15 1346 [Polyethylene Glycol] 17 GM PACK, 17 GM PO HS Prescribed by: BARTOLOME VÁSQUEZ on 04/07/15 162 [Sotalol Hcl] 80 MG TAB, 120 MG PO BID Prescribed by: BARTOLOME VÁSQUEZ on 04/07/151627 [Trihexyphenidyl Hcl] 5 MG TABLET, 5 MG PO DAILY Prescribed by: BARTOLOME VÁSQUEZ on 04/07/151627 Patient Home Medication List Home Medication List Reviewed: Yes Review of Systems Review of Systems Constitutional: no symptoms reported Eyes: No Symptoms Reported Ears, Nose, Mouth, Throat: no symptoms reported Respiratory: see HPI Cardiovascular: see HPI Gastrointestinal: see HPI Genitourinary: no symptoms reported Musculoskeletal: see HPI Skin: no symptoms reported Psychiatric/Neurological: No Symptoms Reported Past Tlgfpnm-Hrrzea-Vojwhh Hx Patient Social History Alcohol Beverage of Choice: Wine 2nd Hand Smoke Exposure: No Recent Hopitalizations: No Immunizations Up To Date Tetanus Booster (TDap): Less than 5yrs Date of Pneumonia Vaccine: April 04, 2011 Date of Influenza Vaccine: Sep 22, 2017 Seasonal Allergies Seasonal Allergies: No Past Medical History Surgeries: Yes (dental, HIATAL HERNIA, ) Abdominal, Bladder Surgery, Gallbladder Respiratory: Yes COPD Cardiac: No (SVT) Atrial Fibrillation, Hypertension Neurological: Yes (DYSTONIA) Reproductive Disorders: No Female Reproductive Disorders: Denies Sexually Transmitted Disease: No HIV/AIDS: No Genitourinary: No Gastrointestinal: Yes (HIATAL HERNIA;REPAIRED) Gastroesophageal Reflux, Diverticulosis Musculoskeletal: Yes (L1,L4 COMPRESSION FRACTURES) Osteoporosis, Chronic Back Pain Endocrine: Yes Hypothyroidsim Loss of Vision: Denies Hearing Impairment: Denies Cancer: No Psychosocial: No Integumentary: No Blood Disorders: No Adverse Reaction/Blood Tranf: No Family Medical History CIRR 19 FATHER CIRR 19 FATHER Cardiovascular disease 19 MOTHER DYSTONIA G8 BROTHER FH: cirrhosis 19 FATHER Hypertension 19 MOTHER No Pertinent Family Hx Physical Exam Vital Signs Vital Signs - First Documented 02/07/21 12:19 Temp 35.4 Pulse 74 Resp 18 B/P (MAP) 142/79 (100) Pulse Ox 94 Capillary Refill : Height, Weight, BMI Height: 5'0" Weight: 105lbs. 8.0oz. [id number]; 22.14 BMI Method:Stated General Appearance: WD/WN, no apparent distress HEENT: PERRL/EOMI Neck: full range of motion, normal inspection Cardiovascular: regular rate, rhythm, extra beats Respiratory: no respiratory distress, no accessory muscle use, decreased breath sounds, crackles Gastrointestinal: normal bowel sounds, non tender, soft Back: normal inspection, no vertebral tenderness Extremities: normal range of motion, non-tender, normal inspection, no pedal edema, normal capillary refill Neurologic/Psychiatric: no motor/sensory deficits, alert, normal mood/affect, oriented x 3 Skin: normal color, warm/dry; No ecchymosis Dulce Maria Coma Score Best Eye Response: (4) Open Spontaneously Best Verbal Response: (5) Oriented Best Motor Response: (6) Obeys Commands [place] Total: 15 Procedures/Interventions Suture Size: 5-0 Progress/Results/Core Measures Results/Orders Lab Results Laboratory Tests Test 02/07/21 12:35 Range/Units White Blood Count 8.0 4.3-11.0 10^3/uL Red Blood Count 4.43 3.80-5.11 10^6/uL Hemoglobin 13.6 11.5-16.0 g/dL Hematocrit 41 35-52 % Mean Corpuscular Volume 93 80-99 fL Mean Corpuscular Hemoglobin 31 25-34 pg Mean Corpuscular Hemoglobin Concent 33 32-36 g/dL Red Cell Distribution Width 12.6 10.0-14.5 % Platelet Count 339 130-400 10^3/uL Mean Platelet Volume 10.5 9.0-12.2 fL Immature Granulocyte % (Auto) 1 % Neutrophils (%) (Auto) 73 42-75 % Lymphocytes (%) (Auto) 18 12-44 % Monocytes (%) (Auto) 7 0-12 % Eosinophils (%) (Auto) 1 0-10 % Basophils (%) (Auto) 1 0-10 % Neutrophils # (Auto) 5.9 1.8-7.8 10^3/uL Lymphocytes # (Auto) 1.4 1.0-4.0 10^3/uL Monocytes # (Auto) 0.6 0.0-1.0 10^3/uL Eosinophils # (Auto) 0.1 0.0-0.3 10^3/uL Basophils # (Auto) 0.1 0.0-0.1 10^3/uL Immature Granulocyte # (Auto) 0.1 0.0-0.1 10^3/uL Sodium Level 136 135-145 MMOL/L Potassium Level 4.0 3.6-5.0 MMOL/L Chloride Level 97 L 98-107 MMOL/L Carbon Dioxide Level 27 21-32 MMOL/L Anion Gap 12 5-14 MMOL/L Blood Urea Nitrogen 14 7-18 MG/DL Creatinine 0.72 0.60-1.30 MG/DL Estimat Glomerular Filtration Rate > 60 BUN/Creatinine Ratio 19 Glucose Level 104 70-105 MG/DL Calcium Level 9.3 8.5-10.1 MG/DL Corrected Calcium 9.5 8.5-10.1 MG/DL Magnesium Level 1.8 1.6-2.4 MG/DL Total Bilirubin 0.6 0.1-1.0 MG/DL Aspartate Amino Transf (AST/SGOT) 18 5-34 U/L Alanine Aminotransferase (ALT/SGPT) 10 0-55 U/L Alkaline Phosphatase 134 40-136 U/L Troponin I < 0.028 <0.028 NG/ML B-Type Natriuretic Peptide 218.4 H <100.0 PG/ML Total Protein 7.4 6.4-8.2 GM/DL Albumin 3.8 3.2-4.5 GM/DL My Orders Orders - FAUSTO MCINTOSH [employer]RIMP P[employer]ER Cbc With Automated Diff (02/07/21 12:19) Magnesium (02/07/21 12:19) Ekg Tracing (02/07/21 12:19) Comprehensive Metabolic Panel (02/07/21 12:19) Ed Iv/Invasive Line Start (02/07/21 12:19) BNP (02/07/21 12:19) Troponin I (02/07/21 12:19) Chest Pa/Lat (2 View) (02/07/21 12:19) Orphenadrine Inj (Ed Only) (Norflex Inje (02/07/21 13:00) Ketorolac Injection (Toradol Injection) (02/07/21 13:00) Medications Given in ED Current Medications Medications Dose Ordered Sig/Reena Route Start Time Stop Time Status Last Admin Dose Admin Ketorolac Tromethamine 15 mg ONCE ONCE IVP 02/07/21 13:00 02/07/21 13:01 DC 02/07/21 13:11 15 MG Orphenadrine Citrate 30 mg ONCE ONCE IM 02/07/21 13:00 02/07/21 13:01 DC 02/07/21 13:11 30 MG Vital Signs/I&O 02/07/21 12:19 Temp 35.4 Pulse 74 Resp 18 B/P (MAP) 142/79 (100) Pulse Ox 94 Progress Progress Note : Progress Note Patient examined in no acute distress. Oxygen saturation 94% on room air, she is not tachypneic, not struggling to breathe. Symptoms correlate with chest wall contusion, however she does have a significant cardiac history so will evaluate for any cardiac causative factors. Orders placed for basic labs, EKG, troponin, BNP, and CXR. Labs reviewed and are unremarkable.Orders placed for Toradol 50 mg IV push, Norflex 30 mg IM. Chest x-ray shows no acute abnormality. Discussed that she may need to follow-up with her primary care for additional imaging if symptoms persist. We will have her start using incentive spirometer every 2 hours while awake, splinting, Tylenol/ibuprofen as needed for pain. She has taken Flexeril in the past for her thoracic compression fractures and tolerated well. Will provide Rx for Flexeril 5 mg p.o. every 8 as needed severe pain. Discussed that she may use ice/heat. Verbalized understanding. Reviewed discharge plan of care and she is agreeable with plan. Initial ECG Impression Date: Feb 07, 2021 Initial ECG Impression Time: 12:26 Initial ECG Rate: 63 Initial ECG Rhythm: Normal Sinus, PVC Initial ECG Intervals artifact Diagnostic Imaging Diagonstic Imaging: Xray Plain Films/CT/US/NM/MRI: chest Comments NAME: [facility] REC#: [id number] PT STATUS: REG ER : 1930 PHYSICIAN: FAUSTO MCINTOSH SHRIMP PICKER ADMIT DATE: 02/07/21/ER Draft Date of Exam:02/07/21 CHEST PA/LAT (2 VIEW) EXAMINATION: Chest 2 view HISTORY: Fall on the chest with pain. COMPARISON: Chest radiograph from 10/04/2019. FINDINGS: Heart size and pulmonary vasculature are normal. The lungs are clear without consolidation, pleural effusion, or pneumothorax. There are multilevel compression fractures throughout the thoracic spine which do not appear significantly changed from 10/04/2019. No obvious displaced fracture. IMPRESSION: 1. No acute radiographic abnormality in the chest. Dictated on workstation # [id number] Dict: 02/07/21 1307 Trans: 02/07/21 1313 [id number] [id number] Interpreted by: ADRI MALAGON DO Electronically signed by: Reviewed: Reviewed by Me Departure Impression Primary Impression: Contusion of chest wall Disposition: 01 HOME, SELF-CARE Condition: Improved Departure-Patient Inst. Decision time for Depature: 13:19 Referrals: RONEL THOMAS MD (PCP/Family) Primary Care Physician Patient Instructions: Contusion (DC) Add. Discharge Instructions: Plan: 1. Discharge home. May take Tylenol/Ibuprofen as needed for pain per package. 2. Follow up with your doctor if your symptoms persist. 3. Use incentive spirometer every 2 hours while awake. Splint chest as shown in ED. 4. Apply ice 20 minutes at a time 4-6x per day. 5. Return to ER for any new, worsening, or concerning symptoms. All discharge instructions reviewed with patient and/or family. Voiced understanding. Scripts Cyclobenzaprine HCl (Cyclobenzaprine HCl) 5 Mg Tablet 5 MG PO Q8H for Pain, #14 TAB 0 Refills Prov: FAUSTO MCINTOSH SHRIMP PICKER 02/07/21 FAUSTO MCINTOSH APRN Feb 07, 2021 12:30
[2021-02-07 12:42] LABS: BASOPHILS # (AUTO) 0.1 10^3/uL (0.0-0.1); BASOPHILS % (AUTO) 1 % (0-10); EOSINOPHILS # (AUTO) 0.1 10^3/uL (0.0-0.3); EOSINOPHILS % (AUTO) 1 % (0-10); HEMATOCRIT 41 % (35-52); HEMOGLOBIN 13.6 g/dL (11.5-16.0); LYMPHOCYTES # (AUTO) 1.4 10^3/uL (1.0-4.0); LYMPHOCYTES % (AUTO) 18 % (12-44); MEAN CORPUSCULAR HEMOGLOBIN 31 pg (25-34); MEAN CORPUSCULAR HGB CONC 33 g/dL (32-36); MEAN CORPUSCULAR VOLUME 93 fL (80-99); MEAN PLATELET VOLUME 10.5 fL (9.0-12.2); MONOCYTES # (AUTO) 0.6 10^3/uL (0.0-1.0); MONOCYTES % (AUTO) 7 % (0-12); NEUTROPHILS # (AUTO) 5.9 10^3/uL (1.8-7.8); NEUTROPHILS % (AUTO) 73 % (42-75); PLATELET COUNT 339 10^3/uL (130-400)
[2021-02-07] MEDS ORDERED: ORPHENADRINE 60 MG/2 ML (NORFLEX) AMP (ED ONLY) IM ONE (13:00)
[2021-02-07] MEDS ORDERED: KETOROLAC 30 MG/ML VIAL IVP ONE (13:00)
[2021-02-07 13:02] LABS: ALANINE AMINOTRANSFERASE 10 U/L (0-55); ALBUMIN 3.8 GM/DL (3.2-4.5); ALKALINE PHOSPHATASE 134 U/L (40-136); BILIRUBIN,TOTAL 0.6 MG/DL (0.1-1.0); BUN/CREATININE RATIO 19; CALCIUM 9.3 MG/DL (8.5-10.1); CARBON DIOXIDE 27 MMOL/L (21-32); CHLORIDE 97 MMOL/L (98-107); CREATININE SERUM 0.72 MG/DL (0.60-1.30); GFR ESTIMATED > 60; GLUCOSE 104 MG/DL (70-105); MAGNESIUM 1.8 MG/DL (1.6-2.4); SODIUM 136 MMOL/L (135-145); TOTAL PROTEIN 7.4 GM/DL (6.4-8.2)
--- NOTE | 2021-02-07 13:14 | Diagnostic Imaging Report ---
EXAMINATION: Chest 2 view HISTORY: Fall on the chest with pain. COMPARISON: Chest radiograph from 10/04/2019. FINDINGS: Heart size and pulmonary vasculature are normal. The lungs are clear without consolidation, pleural effusion, or pneumothorax. There are multilevel compression fractures throughout the thoracic spine which do not appear significantly changed from 10/04/2019. No obvious displaced fracture. IMPRESSION: 1. No acute radiographic abnormality in the chest. Dictated by: Dictated on workstation # [id number]
[2021-02-07] MEDS ORDERED: CYCL5TAB PO (13:26)
[2021-02-07 13:39] VITALS: BP 132/74
== END 2021-02-07 13:39 | disposition home or self-care (01) ==
LOC: EDUNIT# 11:58 → ER 12:01
DX: S20.219A Contusion of unspecified front wall of thorax, initial encounter (principal); I10 Essential (primary) hypertension; E03.9 Hypothyroidism, unspecified; G89.29 Other chronic pain; M54.9 Dorsalgia, unspecified; Z82.49 Family history of ischemic heart disease and other diseases of the circulatory system; Z79.891 Long term (current) use of opiate analgesic; Z79.82 Long term (current) use of aspirin; Z79.890 Hormone replacement therapy; W29.2XXA Contact with other powered household machinery, initial encounter
CPT/HCPCS: 36415; 71046; 80053; 83735; 83880; 84484; 85025; 93005

== ENCOUNTER → 2021-03-21 | Outpatient (CLI) | payer MEDICARE, OTHER ==
[~2021-03-21] VITALS: Ht 157 cm; Wt 40.0 kg
[~2021-03-21] MED LIST changes: +CATHETER FLUSH 10 ML SYR IV PRN; +CYCL5TAB PO; +REGADENOSON 0.4 MG/5 ML SYR (LEXISCAN) IV ONE
[2021-03-21 08:52] LABS: ALANINE AMINOTRANSFERASE 10 U/L (0-55); ALKALINE PHOSPHATASE 134 U/L (40-136); BILIRUBIN,TOTAL 0.5 MG/DL (0.1-1.0); BUN/CREATININE RATIO 24; CALCIUM 9.3 MG/DL (8.5-10.1); CARBON DIOXIDE 31 MMOL/L (21-32); CHLORIDE 99 MMOL/L (98-107); CHOLESTEROL 164 MG/DL (< 200); CREATININE SERUM 0.68 MG/DL (0.60-1.30); GFR ESTIMATED > 60; GLUCOSE 103 MG/DL (70-105); HDL CHOLESTEROL 55 MG/DL (40-60); POTASSIUM 3.8 MMOL/L (3.6-5.0); SODIUM 140 MMOL/L (135-145); TRIGLYCERIDES 77 MG/DL (<150); VLDL CHOLESTEROL 15 MG/DL (5-40)
[2021-03-21 09:25] VITALS: BP 123/88
--- NOTE | 2021-03-24 08:31 | Cardiology Stress Test Report ---
Stress Test Report Date of Procedure/Referring: Date of Procedure: Mar 21, 2021 Sophia Saleem Admitting Physician Clement Laura MD Indications: Abnormal ECG Baseline Heart Rate: 84 Baseline Blood Pressure: Blood Pressure Systolic: 123 Blood Pressure Diastolic: 88 Baseline Vitals Vital Signs Date Time Temp Pulse Resp B/P (MAP) Pulse Ox O2 Delivery O2 Flow Rate FiO2 03/21/21 09:25 77 18 123/88 (100) 98 Room Air Baseline EKG: Baseline EKG: Sinus rhythm, APCs Summary After explaining the procedure to the patient, she signed a consent and then brought to the stress nuclear laboratory. Patient received 0.4 mg Lexiscan for stress test, ECG, heart rate and blood pressure were monitored continuously. Resting and stress dose of radio tracer were injected, imaging was acquired and reviewed in short axis, horizontal long axis and vertical long axis views. TID: 1.3 SSS: 3 SDS: 1 EF: 88 1. Patient tolerated Lexiscan well 2. TID value is elevated due to the small left ventricular size 3. No significant ischemia or infarction on SPECT images 4. Small left ventricular size with good contractility, EF 88%, I believe it is an overestimation due to the small left ventricular size ESTEFANÍA EATON MD March 24, 2021 08:31
== END ==
LOC: CARD 11:00
PROVIDERS: ATTEND Physician Assistant
DX: R94.31 Abnormal electrocardiogram [ECG] [EKG] (principal)
CPT/HCPCS: 78452; 80053; 80061; 93017; A9502; 36415